=== PATIENT | male | born 1960 | race Caucasian/White ===

== ENCOUNTER 2017-03-11 00:32 | Inpatient (IN) | payer MEDICAID ==
[~2017-03-11] VITALS: Ht 177.8 cm; Wt 71.2 kg
[2017-03-11] VITALS (68 sets, daily range): BP systolic 73–132; BP diastolic 39–61
--- NOTE | 2017-03-11 00:35 | NUR ---
BB RA86 FROM [facility] FOR SpO2 DESATURATION TO 80%, PER TRANSFER RECORD, PT GIVEN LASIX 40mg GT @2300. PT NONVERBAL. RR EVEN AND UNLABORED. NO SOB NOTED. NAD NOTED. NO NVD AT THIS TIME. PT NOT DIAPHORETIC. PT RECTAL TEMP 99.7. PER RA PT PORTEX 8 REPLACED AT [facility] YESTERDAY. RT CALLED.
--- NOTE | 2017-03-11 00:40 | NUR ---
DR. JENSEN AT BEDSIDE. RT AT BEDSIDE
--- NOTE | 2017-03-11 00:45 | NUR ---
IV STARTED ON LEFT HAND 18G, LABS AND BLOOD CX DRAWN
--- NOTE | 2017-03-11 00:47 | NUR ---
XRAY AT BEDSIDE
[2017-03-11] MEDS ORDERED: MAGN400O6 GT (01:11)
[2017-03-11] MEDS ORDERED: IPRA3AMP IH (01:11)
[2017-03-11] MEDS ORDERED: BISA10SU8 RC (01:11)
[2017-03-11] MEDS ORDERED: HYDR-4076 GT (01:11)
[2017-03-11] MEDS ORDERED: TRAM50TA2 GT (01:11)
[2017-03-11] MEDS ORDERED: DOCU-170 GT (01:11)
[2017-03-11] MEDS ORDERED: CHLO473M2 MM (01:11)
[2017-03-11] MEDS ORDERED: DEXT1DRO3 OP (01:11)
[2017-03-11] MEDS ORDERED: LEVE1000 GT (01:11)
[2017-03-11] MEDS ORDERED: NA P133E RC (01:11)
[2017-03-11] MEDS ORDERED: AMAN50SY GT (01:11)
[2017-03-11] MEDS ORDERED: ACET160S GT (01:11)
[2017-03-11] MEDS ORDERED: HEPA500013 SQ (01:11)
[2017-03-11] MEDS ORDERED: AMLO10TA2 GT (01:11)
--- NOTE | 2017-03-11 01:11 | NUR ---
PT'S MOTHER, HORTENCIA MARQUES WHOM LIVES IN [place] CALLED ASKING ABOUT PT'S CONDITION AND REQUESTS THAT STAFF UPDATE HER IF THE PT IS ADMITTED OR DISCHARGED HOME.
[2017-03-11 01:20] LABS: BASOPHILS # (AUTO) 0.1 /CMM (0.0-0.2); BASOPHILS % (AUTO) 0.4 % (0.0-2.0); EOSINOPHILS # (AUTO) 0.1 /CMM (0.0-0.7); EOSINOPHILS % (AUTO) 0.4 % (0.0-6.0); HEMATOCRIT 35 % (39-51); HEMOGLOBIN 11.5 g/dL (13.5-17.5); LYMPHOCYTES # (AUTO) 1.3 /CMM (0.8-4.8); LYMPHOCYTES % (AUTO) 7.7 % (20.0-44.0); MEAN CORPUSCULAR HEMOGLOBIN 32 PG (26.0-33.0); MEAN CORPUSCULAR HGB CONC 33 g/dl (31.0-36.0); MEAN CORPUSCULAR VOLUME 95 fL (80-96); MONOCYTES # (AUTO) 1.3 /CMM (0.1-1.30); MONOCYTES % (AUTO) 7.3 % (2.0-12.0); NEUTROPHILS # (AUTO) 14.7 /CMM (1.8-8.9); NEUTROPHILS % (AUTO) 84.2 % (43.0-81.0); PLATELET COUNT (AUTO) 280 /CMM (150-450); RDW COEFFICIENT OF VARIATION 13.6 (11.5-15.0); RED BLOOD CELL COUNT(AUTO) 3.64 MIL/uL (4.5-6.0); WHITE BLOOD COUNT (AUTO) 17.4 K/uL (4.3-11.0)
[2017-03-11 01:32] LABS: CREATININE 1.9 mg/dL (0.6-1.3); POTASSIUM 4.3 mmol/L (3.5-5.1)
[2017-03-11] MEDS ORDERED: PIPERACILLIN /TAZOBACTAM 3.375 G VIAL IV ONE (01:55)
[2017-03-11] MEDS ORDERED: IV SET PRIMARY PUMP SET 1 EA INFUS.SET MC ONE ×5 (01:55→09:40)
--- NOTE | 2017-03-11 01:55 | NUR ---
RAPID INFLUENZA COLLECTED. CALLED LAB FOR HAND SIZER.
[2017-03-11] MEDS ORDERED: LEVOFLOXACIN 750 MG /D5W 150ML 150 ML IV ONE ×2 (02:00→02:19)
[2017-03-11] MEDS ORDERED: VANCOMYCIN 1 GM in IV D5W 250 ML IV ONE ×2 (02:00→03:00)
[2017-03-11] MEDS ORDERED: PIPERACILLIN /TAZOBACTAM 3.375 G in IV D5W 50 ML IV ONE (02:00)
--- NOTE | 2017-03-11 02:08 | NUR ---
PT ASSIGNED TO [facility] [phone]
--- NOTE | 2017-03-11 02:16 | NUR ---
REPORT GIVEN TO GAETANO WILCOX
--- NOTE | 2017-03-11 02:38 | NUR ---
INFORMED DR. JENSEN D-DIMER 1.74. AWARE. NNO
--- NOTE | 2017-03-11 02:45 | NUR ---
RN NOTES ADMITTED A 56 YEARS OLD MALE PT FROM ER VIA RNEY PER ACLS PROTOCOL WITH PRIMARY DIAGNOSIS OF SOB. PT AWAKE ALERT, NON VERBAL, WITH TRACH AT 6LPM O2 VIA TRACH WITH SATURATION AT 89%. VITAL SIGNS BP 114/61, HR 91, RR18, TEMP 98.3. INITIAL PHYSICAL ASSESSMENT DONE, WITH SKIN CONDITION TAKEN AND FILED IN THE CHART. KEPT PT CLEAN AND DRY. ALL ORDERS NOTED AND CARRIED OUT. WILL CONTINUE TO MONITOR PT.
[2017-03-11] MEDS ORDERED: VANCOMYCIN 1 GM VIAL ONE (02:55)
[2017-03-11] MEDS ORDERED: IV D5W 250 ML IV ONE (02:55)
--- NOTE | 2017-03-11 02:56 | NUR ---
PT TRASNFERED PER ACLS PROTOCOL. LEVAQUN IV RUNNING AT THIS TIME. GAETANO HALL. ENDORSED TO RN TO GIVE VANCOMYCIN 1GM IVPB
[2017-03-11] MEDS ORDERED: ZOLPIDEM TARTRATE 5 MG TABLET PO PRN (03:00)
[2017-03-11] MEDS ORDERED: ACETAMINOPHEN 325 MG TABLET PO PRN (03:00)
[2017-03-11] MEDS ORDERED: BISACODYL SUPP (10 MG) 10 MG/SUPP.RECT SUPP.RECT RC PRN (03:00)
[2017-03-11] MEDS ORDERED: IV NS 0.9% 1,000 ML ONE (03:15)
[2017-03-11] MEDS ORDERED: SECONDARY IV SET 1 EA INFUS.SET MC ONE ×3 (03:16→09:40)
[2017-03-11] MEDS ORDERED: IV NS 0.9% 1,000 ML IV PRN (03:30)
--- NOTE | 2017-03-11 03:50 | NUR ---
RN NOTES RT AT BEDSIDE, COOL AEROSOL VIA TRACH WAS SET UP, PT O2 SAT CONTINOUSLY DROPPING. SECRETIONS WERE SUCTIONED, NOTED WITH THICK, PINK SECRETIONS. O2 WAS INCREASED TO 10%-15% LPM BUT O2SAT CONTIONOUSLY DROPS. VITAL SIGNS WERE CHECKED BP 73/44, HR 74, RR 15, TEMP 98.3, BS 95MG/DL O2SAT WENT DOWN TO 50%. RAPID RESPONSE WAS CALLED. MILO KU GEOTECHNICAL ENGINEERING TECHNICIAN WAS PAGED. AMBU BAGGING WAS DONE TO KEEP O2 SAT ABOVE 93%.
--- NOTE | 2017-03-11 03:55 | NUR ---
RN NOTES RECEIVED ORDER FROM MILO BOURNE TO DO ABG AND PLACE PT ON VENT. CONTINOUS AMBU BAGGING DONE TO KEEP O2 SAT ABOVE 92%.
--- NOTE | 2017-03-11 04:15 | NUR ---
RN NOTES TRANSFERED PT TO ICU PER ACLS PROTOCOL ORDERED, TELEMONITOR READS SINUS RHYTHM WITH HR OF 84. CONTINOUS AMBU BAGGING DONE, WITH O2 SAT AT 98%. REPORT GIVEN TO ED RN IN ICU.
[2017-03-11 04:16] LABS: ABG BASE EXCESS -7.1 mmol/L; ABG OXYGEN SATURATION 97.3 % (92.0-98.5); ABG PCO2 41.7 mmHg (35.0-45.0); ABG PH 7.281 (7.350-7.450); AaDO2 548.3 mmHg; COHb 0.5 % (0.5-1.5); MetHb 0.6 % (0.0-1.5); O2Hb 96.2 % (94.0-97.0); SITE, ABG Left Radial
[2017-03-11] MEDS ORDERED: IPRATROPIUM NEB FS 0.5 MG/2.5 ML AMPUL.NEB NEB PRN (04:30)
[2017-03-11] MEDS ORDERED: ACETYLCYSTEINE IV 6,000 MG/30 ML VIAL IV ONE ×2 (04:30→05:00)
[2017-03-11] MEDS ORDERED: ALBUTEROL FS 2.5 MG/0.5 ML VIAL.NEB NEB PRN (04:30)
[2017-03-11] MEDS ORDERED: IV D5W 500 ML IV ONE (04:54)
[2017-03-11] MEDS ORDERED: NOREPINEPHRINE 4 MG/4 ML AMPUL IV ONE (04:54)
[2017-03-11] MEDS: NOREPINEPHRINE 8 MG in IV D5W 500 ML IV PRN ×2 (05:05→09:45)
[2017-03-11] MEDS ORDERED: ACETYLCYSTEINE 10% SOLN 400 MG/4 ML VIAL ONE (05:10)
[2017-03-11] MEDS ORDERED: ACETYLCYSTEINE 20% SOLN 800 MG/4 ML VIAL ONE (05:13)
[2017-03-11] MEDS ORDERED: CT SWABBABLE VALVE TRANS SET 1 EA INFUS.SET MC ONE (05:20)
[2017-03-11] MEDS ORDERED: IOHEXOL-350 100 ML VIAL IV ONE ×2 (05:20→05:28)
[2017-03-11] MEDS ORDERED: IV NS 0.9% 250 ML IV ONE ×2 (05:20→21:12)
[2017-03-11] MEDS ORDERED: ACETYLCYSTEINE 20% ORAL SOLN 6,000 MG/30 ML VIAL PO SCH (06:00)
[2017-03-11 06:19] LABS: ABG BASE EXCESS -4.5 mmol/L; ABG OXYGEN SATURATION 80.3 % (92.0-98.5); ABG PCO2 51.4 mmHg (35.0-45.0); ABG PH 7.264 (7.350-7.450); ABG PO2 52.3 mmHg (75.0-100.0); AaDO2 609.3 mmHg; COHb 0.8 % (0.5-1.5); MetHb 0.9 % (0.0-1.5); O2Hb 78.9 % (94.0-97.0); SITE, ABG Right Radial
[2017-03-11] MEDS ORDERED: PHENYLEPHRINE 80 MG in IV D5W 250 ML IV PRN (06:30)
[2017-03-11] MEDS ORDERED: AMANTADINE HCL 100 MG CAPSULE GT SCH (07:30)
[2017-03-11] MEDS ORDERED: POLYVINYL ALCOHOL 15 ML BOTTLE EACHEYE PRN (07:30)
[2017-03-11] MEDS ORDERED: HEPARIN INFUSION/D5W 500 ML IV PRN (07:30)
[2017-03-11] MEDS: PANTOPRAZOLE 40 MG TABLET.DR PO SCH (07:30)
--- NOTE | 2017-03-11 07:30 | NUR ---
BREWING DIRECTOR PT WAS TRANSFERRED FROM [facility] AFTER SEED AND FERTILIZER SPECIALIST WITH DIAGNOSIS RESPIRATORY FAILURE. PT IS OBTUNDED, EXTREMITIES ARE CONTRACTED. CHRONIC TRACH. PT WAS PLACED ON VENTILATOR. PT IS HYPOTENSIVE. STARTED LEVOPHED DRIP, TITRATED TO KEEP SBP>90. MUCOMYST VIA PEG WAS GIVEN AND PT WAS TAKEN TO STAT CT-SCAN OF THE CHEST WITH CONTRAST TO R/O PE. WHEN PT WAS PLACED TO THE CT- SCAN TABLE. PT ALMOST CRASHED- SEVERE TACHYPNEA, O2 SAT. DROPPED TO 70'S, SBP DROPPED TO 60'S. SO CT-SCAN WAS NOT DONE AND PT BROUGHT BACK TO ICU. PT HAS ONLY ONE IV ACCESS AND NEED TLC INSERTION. ANOTHER STAT ABG WAS DONE AT 6 A.M.- SEE RESULTS. REPORT GIVEN TO EVER ORDONEZ RN.
[2017-03-11] MEDS ORDERED: FEE PK DOSING 1 MIN EA MC ONE (07:32)
[2017-03-11] MEDS: PROPOFOL 100 ML IV PRN ×3 (08:00→23:32)
--- NOTE | 2017-03-11 08:00 | NUR ---
interior horticulturist received pt in bed not stable, vs not stable pt is on levophed periperal line no central line on pt, called datawarehouse developer to call for emergency picc line incersion, dr. wanda rodríguez at bedside assessing pt, will incert picc line, orders received pt is diaphoretic with respiration rat 40s sat 80s, started pt on propofol as ordered iv fluids dc fall precautions taken call light w/ in reach will continue to monitor.
[2017-03-11] MEDS ORDERED: DOCUSATE SODIUM 100 MG CAPSULE PO SCH (09:00)
[2017-03-11] MEDS ORDERED: HEPARIN SODIUM, PORCINE 1000 UNIT/1 ML VIAL IV ONE (09:00)
[2017-03-11] MEDS ORDERED: HEPARIN SODIUM, PORCINE 5000 UNITS/1 ML VIAL SQ SCH (09:00)
[2017-03-11] MEDS: hydrALAZINE HCL 25 MG TABLET GT SCH ×2 (09:00→21:00)
[2017-03-11] MEDS: TRAMADOL HCL 50 MG TABLET GT SCH ×2 (09:00→21:00)
[2017-03-11] MEDS ORDERED: AMLODIPINE BESYLATE 10 MG TABLET GT SCH (09:00)
--- NOTE | 2017-03-11 09:00 | NUR ---
travel registered nurse icu pt in bed not stable unable to turn the pt as his condition not stable able to off load extremities, once pt is stable will be able to turn and reposition, pt is also contracted difficult to offload lower extremities as properly did the best possible. And
[2017-03-11] MEDS ORDERED: FUROSEMIDE 20 MG/2 ML VIAL IV SCH (09:30)
[2017-03-11] MEDS ORDERED: HEPARIN SODIUM, PORCINE 5000 UNITS/1 ML VIAL IV ONE (09:30)
[2017-03-11] MEDS: VANCOMYCIN 0.75 GM in IV D5W 250 ML IV SCH ×2 (09:31→20:00)
[2017-03-11] MEDS: LEVETIRACETAM SOL (5 ML) 100 MG/ML UDC GT SCH ×2 (09:31→21:17)
[2017-03-11] MEDS: CHLORHEXIDINE GLUCONATE 15 ML UDC MM SCH ×2 (09:31→17:00)
[2017-03-11] MEDS: PIPERACILLIN /TAZOBACTAM 3.375 G in IV D5W 50 ML IV SCH ×3 (09:31→21:17)
[2017-03-11] MEDS: ASPIRIN 81 MG TAB.CHEW PO SCH (09:49)
[2017-03-11] MEDS ORDERED: FUROSEMIDE 40 MG/4 ML VIAL IV ONE (10:00)
[2017-03-11] MEDS ORDERED: FUROSEMIDE 40 MG/4 ML VIAL IV SCH (10:00)
[2017-03-11 10:02] LABS: MAGNESIUM 2.9 mg/dL (1.8-2.4)
[2017-03-11 10:08] LABS: ABG BASE EXCESS -0.1 mmol/L; ABG OXYGEN SATURATION 99.1 % (92.0-98.5); ABG PCO2 33.6 mmHg (35.0-45.0); ABG PH 7.458 (7.350-7.450); ABG PO2 335.1 mmHg (75.0-100.0); COHb 0.4 % (0.5-1.5); MetHb 0.9 % (0.0-1.5); O2Hb 97.8 % (94.0-97.0); SITE, ABG Right Radial; VENT MODE, BG AC 12 550 100%
[2017-03-11] MEDS ORDERED: DIATR MEGLU/DIATRIZOATE SODIUM 120 ML BOTTLE (GASTROGRAPHIN) ONE (12:08)
--- NOTE | 2017-03-11 13:00 | NUR ---
agriculture intern pt in bed able to turn stable applied kci matres noted sacral redness, left lower leg discolorization, left medial side of knee dti blanchable, unable to take photos as pt started to couch turn blue breath against vent, will endorse to pm nurse to take photos once pt is turned and is stable
[2017-03-11 13:23] LABS: INR 0.97 (0.87-1.13); PROTHROMBIN TIME 10.4 SECS (9.5-12.7)
[2017-03-11] MEDS: HEPARIN SODIUM, PORCINE 5000 UNITS/1 ML VIAL SQ SCH (14:22)
--- NOTE | 2017-03-11 19:48 | NUR ---
CIRCULAR SAW FILER. INITIAL ASSESSMENT. RECEIVED THE PT REST ON THE BED TRACH TO VENT CONNECTED. SEDATED WITH DIPRIVAN. SHILEY#8 AC 12 TV [id number] 50%. SAT 98% NO ACUTE DISTRESS NOTED. CREATIVE STRATEGIST SHOWING CREATIVE STRATEGIST SHOWING AFIB. CONTROLLED. IV LT IJ TRIPLE LUMEN DIPRIVAN 35MCG/KG/MIN LEVOPHED 8MCG/MIN. HOB ELEVATED. AFEBRILE. TURN AND REPOSITION Q2H. WILL CONTINUE TO MONITOR VITALS.
[2017-03-11] MEDS: AMANTADINE HCL 100 MG CAPSULE GT SCH (21:17)
[2017-03-11] MEDS: ATORVASTATIN 10 MG TABLET PO SCH (21:17)
--- NOTE | 2017-03-11 21:20 | NUR ---
FLIGHT COMMUNICATIONS OPERATOR. ULTRAM 2100 NOT GIVEN. PT ON DIPRIVAN DRIP
[2017-03-11] MEDS: IV NS 0.9% 250 ML IV PRN (21:25)
[2017-03-12] VITALS (61 sets, daily range): BP systolic 78–123; BP diastolic 40–64
[2017-03-12] MEDS: LEVOFLOXACIN 750 MG /D5W 150ML 750 MG in PREMIX 1 EA IV SCH (01:31)
[2017-03-12] MEDS: NOREPINEPHRINE 8 MG in IV D5W 500 ML IV PRN ×2 (01:32→16:30)
[2017-03-12] MEDS: PIPERACILLIN /TAZOBACTAM 3.375 G in IV D5W 50 ML IV SCH ×4 (02:32→20:53)
[2017-03-12] MEDS ORDERED: LEVOFLOXACIN 750 MG /D5W 150ML 750 MG in PREMIX 1 EA IV SCH (03:00)
--- NOTE | 2017-03-12 03:41 | NUR ---
ELECTRICIAN CONSTRUCTOR SUPERVISOR AM CARE ORAL CARE BED BATH GIVEN. LINEN CHANGED. REMAINING SAME VENT SETTING TOLERATE WELL. SAT 99%. NO ACUTE DISTRESS NOTED. CARDIAC M.ON.ITOR .S.H.O..JEB.Valentin .N.S.R IV LT IJ TRIPLE LUMAN. LEVOPHED 8MCG/MIN DIPRIVAN 30MCG/KG/MIN. GT CLAMPED. NPO. TURN AND REPOSITION Q2H. AFEBRILE. WILL CONTINUE TO MONITOR VITALS.
[2017-03-12 05:05] LABS: APPEARANCE,URINE SL CLOUDY (CLEAR); BILIRUBIN,URINE NEGATIVE (NEGATIVE); BLOOD, URINE 1+ Ery/uL (NEGATIVE); COLOR,URINE YELLOW (YELLOW); KETONES,URINE NEGATIVE (NEGATIVE); LEUKOCYTE ESTERASE ,URINE NEGATIVE (NEGATIVE); NITRITE, URINE POSITIVE (NEGATIVE); PROTEIN,URINE TRACE mg/dl (NEGATIVE); UGLUCOSE NEGATIVE (NEGATIVE); UROBILINOGEN,URINE 0.2 EU/dL (0.2)
[2017-03-12 05:16] LABS: CALCIUM, SERUM 8.8 mg/dL (8.5-10.1); MAGNESIUM 2.9 mg/dL (1.8-2.4); PHOSPHORUS 4.5 mg/dL (2.5-4.9)
[2017-03-12 05:25] LABS: BASOPHILS % (AUTO) 0.1 % (0.0-2.0); EOSINOPHILS # (AUTO) 0.3 /CMM (0.0-0.7); EOSINOPHILS % (AUTO) 1.5 % (0.0-6.0); HEMATOCRIT 29 % (39-51); HEMOGLOBIN 9.6 g/dL (13.5-17.5); LYMPHOCYTES % (AUTO) 11.5 % (20.0-44.0); MEAN CORPUSCULAR HEMOGLOBIN 32 PG (26.0-33.0); MEAN CORPUSCULAR HGB CONC 34 g/dl (31.0-36.0); MEAN CORPUSCULAR VOLUME 95 fL (80-96); MONOCYTES # (AUTO) 1.5 /CMM (0.1-1.30); NEUTROPHILS # (AUTO) 13.2 /CMM (1.8-8.9); NEUTROPHILS % (AUTO) 77.9 % (43.0-81.0); PLATELET COUNT (AUTO) 226 /CMM (150-450); RDW COEFFICIENT OF VARIATION 13.6 (11.5-15.0); RED BLOOD CELL COUNT(AUTO) 2.99 MIL/uL (4.5-6.0)
[2017-03-12 05:27] LABS: BACTERIA,URINE 1+ /HPF (None Seen); RBC,URINE 0-2 /HPF (0-2); SQUAMOUS EPITHELIAL CELL,UR Rare /HPF (None Seen); URINE AMORPHOUS URATE Few /HPF (None Seen); WBC,URINE 0-2 /HPF (0-3)
[2017-03-12] MEDS: PROPOFOL 100 ML IV PRN ×3 (06:46→22:17)
--- NOTE | 2017-03-12 08:14 | NUR ---
TRACHED MALE PT ON [facility] VENT. SETTINGS ORDERED. AC 12 550 40% 0 PEEEP. PT SEDATED JEANINE VENT SETTINGS WELL. TRACH PORTEX MIDLINE. B/S EQUAL. SMALL PALE YELLOW SPUTUM. ALARMS SET AND AUDIBLE. AMBU BAG AT HEAD OF BED. Addendum: 03/12/17 at 0817 by RADHA TOSCANO RT Amended: Links added.
[2017-03-12] MEDS: VANCOMYCIN 0.75 GM in IV D5W 250 ML IV SCH ×2 (08:18→20:00)
[2017-03-12] MEDS: hydrALAZINE HCL 25 MG TABLET GT SCH (08:18)
[2017-03-12] MEDS: PANTOPRAZOLE 40 MG TABLET.DR PO SCH (08:18)
[2017-03-12] MEDS: ASPIRIN 81 MG TAB.CHEW PO SCH (08:18)
[2017-03-12] MEDS: AMANTADINE HCL 100 MG CAPSULE GT SCH ×2 (08:18→20:57)
[2017-03-12] MEDS: LEVETIRACETAM SOL (5 ML) 100 MG/ML UDC GT SCH ×2 (08:18→20:57)
[2017-03-12] MEDS: CHLORHEXIDINE GLUCONATE 15 ML UDC MM SCH ×2 (08:18→16:30)
[2017-03-12] MEDS: TRAMADOL HCL 50 MG TABLET GT SCH ×2 (08:19→20:58)
[2017-03-12] MEDS: HEPARIN SODIUM, PORCINE 5000 UNITS/1 ML VIAL SQ SCH ×2 (08:20→20:59)
--- NOTE | 2017-03-12 09:30 | NUR ---
ICU/RN - Notes Diprivan titrated down to 15 mcg/kg/min to provide pt sedation vacation. Pt noted to be tachypneic and tachycardic with ventilator alarming. RT Vanush at bedside. Diprivan titrated back up as pt presents with distress off sedation.
[2017-03-12] MEDS: DOCUSATE SODIUM LIQ 100 MG/10 ML UDC GT SCH (10:21)
[2017-03-12] MEDS ORDERED: POTASSIUM CL. PREMIX PERIPHER. 50 ML IV SCH (11:00)
[2017-03-12] MEDS ORDERED: SECONDARY IV SET 1 EA INFUS.SET MC ONE (11:02)
[2017-03-12] MEDS ORDERED: IV SET PRIMARY PUMP SET 1 EA INFUS.SET MC ONE ×2 (14:55→20:44)
[2017-03-12] MEDS: LACTOBACILLUS RHAMNOSUS GG 1 EACH CAP.SPRINK GT SCH (16:30)
--- NOTE | 2017-03-12 19:45 | NUR ---
ICU/PNEUMATIC TOOL REPAIRER PT'S VANCO LEVEL WAS 30, UNABLE TO 2000 VANCO. CHARGE NURSE AWARE OF LEVEL AND REASON WHY NO ADMINISTRATION.
--- NOTE | 2017-03-12 20:17 | NUR ---
ICU/QUALITY ASSURANCE ADVISOR PT IS MRSA NARES POSITIVE, JULIO C MCCLOUD CALLED . ORDERS WERE RECEIVED AND CARRIED OUT. CHARGE NURSE IS AWARE.
[2017-03-12] MEDS: ATORVASTATIN 10 MG TABLET PO SCH (20:58)
--- NOTE | 2017-03-12 21:30 | NUR ---
ICU/MAILROOM ASSISTANT WHEN TURNING PT, THAT HIS RICO HAD SOME PINK TING TO THE DIAPER. WHILE SUCTIONING PT THERE WAS A MUCUS PLUS THAT COME UP, WHICH WAS COVED IN BRIGHT RED BLOOD. WILL CONTINUE TO MONITOR THIS. PT WAS TURNED AND REPOSITIONED FOR COMFORT AND CARE.
[2017-03-12] MEDS ORDERED: MUPIROCIN OINT 2% 22 GM TUBE ONE (22:35)
[2017-03-12] MEDS: MUPIROCIN OINT 2% 22 GM TUBE SCH (22:56)
[2017-03-13] VITALS (74 sets, daily range): BP systolic 80–120; BP diastolic 38–58
--- NOTE | 2017-03-13 02:00 | NUR ---
ICU/SPRAY APPLICATOR WHILE CHANGING THE PT AND GIVEN AM CARE, THERE WAS A LARGE BLOOD CLOT ON THE RICO AND PENIS OF PT. MADE CHARGE NURSE OF AWARE OF THIS. ADDED PT, PTT, INR, AND DIC PANEL. ALSO NOTICED MORE BLOOD IN THE SUCTION CANISTER WHILE SUCTIONING THE PT.PT WAS CLEANED AND REPOSITIONED FOR COMFORT AND CARE.
--- NOTE | 2017-03-13 03:10 | NUR ---
ICU/TITLE ABSTRACTOR WHILE GIVING PT BATH PT'S BLOOD PRESSURE DROPPED. CHARGE NURSE AWARE OF THIS. INCREASE LEVO FROM 4 MCG TO 6MCG. WILL CONTINUE TO MONITOR PT'S BLOOD PRESSURE.
[2017-03-13] MEDS: PIPERACILLIN /TAZOBACTAM 3.375 G in IV D5W 50 ML IV SCH ×4 (03:17→20:55)
--- NOTE | 2017-03-13 04:20 | NUR ---
ICU/PAPER DELIVERER PT REQUIRED FREQUENT SUCTIONING BY NURSE, WAS BUCKING THE VENT. WHEN PT WAS SUCTIONED FOUND THAT PT HAD MANY MUCUS PLUGS WITH BLOOD, HHM FILTER WAS CHANGED OUT , WELL THE TUBING BECAUSE WHEN I SUCTIONED PT, THERE WAS MUCH MUCUS AND BLOOD IN TUBING, NURSE CHANGED THIS TOO. WILL CONTINUE TO MONITOR THIS PT.
[2017-03-13] MEDS: PROPOFOL 100 ML IV PRN (04:51)
[2017-03-13 05:21] LABS: BASOPHILS % (AUTO) 0.3 % (0.0-2.0); EOSINOPHILS # (AUTO) 0.4 /CMM (0.0-0.7); EOSINOPHILS % (AUTO) 2.9 % (0.0-6.0); HEMATOCRIT 26 % (39-51); HEMOGLOBIN 8.9 g/dL (13.5-17.5); LYMPHOCYTES # (AUTO) 2.1 /CMM (0.8-4.8); LYMPHOCYTES % (AUTO) 14.9 % (20.0-44.0); MEAN CORPUSCULAR HEMOGLOBIN 32 PG (26.0-33.0); MEAN CORPUSCULAR HGB CONC 34 g/dl (31.0-36.0); MEAN CORPUSCULAR VOLUME 94 fL (80-96); MONOCYTES # (AUTO) 1.1 /CMM (0.1-1.30); MONOCYTES % (AUTO) 8.2 % (2.0-12.0); NEUTROPHILS # (AUTO) 10.2 /CMM (1.8-8.9); NEUTROPHILS % (AUTO) 73.7 % (43.0-81.0); PLATELET COUNT (AUTO) 223 /CMM (150-450); RDW COEFFICIENT OF VARIATION 13.6 (11.5-15.0); WHITE BLOOD COUNT (AUTO) 13.8 K/uL (4.3-11.0)
[2017-03-13 05:40] LABS: ALBUMIN 1.9 g/dL (3.4-5.0); BILIRUBIN,TOTAL 0.6 mg/dL (0.2-1.0); CALCIUM, SERUM 8.8 mg/dL (8.5-10.1); CREATININE 1.7 mg/dL (0.6-1.3); MAGNESIUM 2.6 mg/dL (1.8-2.4); PHOSPHORUS 3.9 mg/dL (2.5-4.9); TOTAL PROTEIN, SERUM 6.5 g/dL (6.4-8.2); TROPONIN I 0.308 ng/mL (0.00-0.056)
--- NOTE | 2017-03-13 05:50 | NUR ---
ICU/CORPORATE REAL ESTATE SPECIALIST PT'S POTASSIUM IS 2.8, CHARGE AWARE. CALLED ROBOTIC MAINTENANCE TECHNICIAN FOR ORDERS.
[2017-03-13 05:56] LABS: POTASSIUM 2.8 mmol/L (3.5-5.1)
[2017-03-13] MEDS ORDERED: POTASSIUM CHLORIDE 20 MEQ POWDER PACKET ONE (06:11)
--- NOTE | 2017-03-13 06:29 | NUR ---
ICU/BENCH PATTERNMAKER METAL POTASSIUM IS 2.8, ORDERS RECEIVED TO GIVEN 80MEQ VIA G/TUBE. CHARGE NURSE AWARE OF ORDERS.
[2017-03-13] MEDS ORDERED: POTASSIUM CHLORIDE 20 MEQ POWDER PACKET GT ONE (06:30)
[2017-03-13 06:34] LABS: D-DIMER 1.28 mg/L(FEU (0.17-0.50); INR 1.09 (0.87-1.13); PROTHROMBIN TIME 11.7 SECS (9.5-12.7)
--- NOTE | 2017-03-13 06:50 | NUR ---
ICU/MAINFRAME CONSULTANT DR KHAN HERE TO SEE THE PT, TOLD HIN ABOUT THE ACTIVE BLEEDING FROM PENIS. PT HAD BEEN ON HEPARIN DRIP THEN WAS ON HEPARIN BID. DR. KHAN GAVE ORDER TO HOLD HEPARIN SQ. THEN TOLD MD KHAN THAT DIC PANEL WAS ORDERED, PT, PTT WITH INR, SAID OK JUST FOLLOW UP WITH THIS. IN ROOM TO SEE PT. WILL HAVE DAY NURSE FOLLOW UP WITH LABS.
[2017-03-13] MEDS: TRAMADOL HCL 50 MG TABLET GT SCH ×2 (08:06→20:53)
[2017-03-13] MEDS: DOCUSATE SODIUM LIQ 100 MG/10 ML UDC GT SCH (08:06)
[2017-03-13] MEDS: LACTOBACILLUS RHAMNOSUS GG 1 EACH CAP.SPRINK GT SCH ×2 (08:06→16:12)
[2017-03-13] MEDS: ASPIRIN 81 MG TAB.CHEW PO SCH (08:06)
[2017-03-13] MEDS: CHLORHEXIDINE GLUCONATE 15 ML UDC MM SCH ×2 (08:06→16:12)
[2017-03-13] MEDS: LEVETIRACETAM SOL (5 ML) 100 MG/ML UDC GT SCH ×2 (08:06→20:51)
[2017-03-13] MEDS: AMANTADINE HCL 100 MG CAPSULE GT SCH ×2 (08:06→20:51)
[2017-03-13] MEDS: MUPIROCIN OINT 2% 22 GM TUBE SCH ×2 (08:07→20:54)
[2017-03-13] MEDS: PANTOPRAZOLE 40 MG TABLET.DR PO SCH (08:07)
[2017-03-13 08:41] LABS: ABG BASE EXCESS 0.1 mmol/L; ABG OXYGEN SATURATION 97.6 % (92.0-98.5); ABG PCO2 30.4 mmHg (35.0-45.0); ABG PH 7.494 (7.350-7.450); ABG PO2 114.1 mmHg (75.0-100.0); AaDO2 136.1 mmHg; COHb 0.5 % (0.5-1.5); MetHb 0.6 % (0.0-1.5); O2Hb 96.5 % (94.0-97.0); SITE, ABG Right Radial; VENT MODE, BG A/C; VT, ABG 550 mL
--- NOTE | 2017-03-13 09:30 | NUR ---
ICU/RN - Notes Diprivan titrated down to provide pt with sedation vacation. Pt opens eyes spontaneously, with rigid extremities, obtunded. Pt appears in no distress at this time. Will continue to monitor.
[2017-03-13] MEDS: POTASSIUM CL. PREMIX PERIPHER. 50 ML IV SCH ×4 (11:11→15:46)
[2017-03-13] MEDS: NUTREN PULMONARY 1,000 ML BAG GT PRN (13:14)
[2017-03-13] MEDS ORDERED: ALBUTEROL FS 2.5 MG/3 ML VIAL.NEB NEB PRN (13:30)
--- NOTE | 2017-03-13 14:20 | NUR ---
ICU/RN - Notes New hematuria and blood clots noted around penis opening. Dr Beth made aware, with urine collected and sent to lab for urinalysis and culture.
[2017-03-13] MEDS: NOREPINEPHRINE 8 MG in IV D5W 500 ML IV PRN (14:23)
[2017-03-13] MEDS: IV NS 0.9% 250 ML IV PRN (14:23)
[2017-03-13] MEDS: VANCOMYCIN 1 GM in IV D5W 250 ML IV SCH (16:12)
[2017-03-13 19:24] LABS: APPEARANCE,URINE TURBID (CLEAR); BILIRUBIN,URINE NEGATIVE (NEGATIVE); BLOOD, URINE 3+ Ery/uL (NEGATIVE); COLOR,URINE RED (YELLOW); KETONES,URINE NEGATIVE (NEGATIVE); LEUKOCYTE ESTERASE ,URINE TRACE (NEGATIVE); NITRITE, URINE NEGATIVE (NEGATIVE); PH,URINE 5.5 (5.0-8.0); PROTEIN,URINE 2+ mg/dl (NEGATIVE); UGLUCOSE NEGATIVE (NEGATIVE); UROBILINOGEN,URINE 0.2 EU/dL (0.2)
[2017-03-13 19:26] LABS: BACTERIA,URINE None seen /HPF (None Seen); RBC,URINE TOO NUMEROUS TO COUN /HPF (0-2); SQUAMOUS EPITHELIAL CELL,UR None Seen /HPF (None Seen); WBC,URINE 0-2 /HPF (0-3)
--- NOTE | 2017-03-13 20:30 | NUR ---
CONSULTING SOFTWARE ENGINEER: PT RECEIVED IN BED . PT OBTUNDED WITH EYES OPEN AND RESPONDS TO PAIN . ALL FOUR EXTREMITIES CONTRACTED. PT IS NON VERBAL. SR-SB ON MONITOR. BP WNL, ON PRESSOR. WILL TITRATE OFF TOLERATED. TRACH IN PLACE AND CONNECTED TO VENT ON AC SETTINGS PER MD. SUCTIONED PT NEEDED. ORAL AND TRACH SECRETIONS NOTED TO BE THICK AND MODERATE. HOB ELEVATED AT 30 DEGREES AT ALL TIMES. GT INTACT AND PATENT . TOLERATING FEEDINGS. WILL CONT TO INCREASE RATE OF FEEDING TOLERATED. FC INTACT AND PATENT WITH HEMATURIA NOTED. PER AM NURSE THE MD IS AWARE. NO OTHER ACTIVE SIGNS BLEEDING NOTED. UPON ASSESSMENT OF SKIN, PATIENT HAS SACRAL REDNESS AND EXCORIATION . PICTURE WAS TAKEN WITHIN THE LAST 24 HOURS . CONSULTED WITH CHARGE NURSE AND NO NEED FOR PICTURE TO BE TAKEN THIS TUESDAY NIGHT FOR WEEKLY WOUND DOCUMENTATION , SKIN IS INTACT. WILL TURN AND REPOSITION PT EVERY TWO HOURS AND KEEP CLEAN AND DRY AT ALL TIMES. PILLOWS PLACED BETWEEN CONTRACTED LEGS AND TO OFFLOAD HEELS AND ARMS. SIDE RAILS UP X2 AND BED ALARM ON. WILL CONT TO MONITOR PT FOR ANY CHANGES IN CONDITION THROUGHOUT THE NIGHT .
[2017-03-13] MEDS: ATORVASTATIN 10 MG TABLET PO SCH (21:00)
[2017-03-14] VITALS (62 sets, daily range): BP systolic 11–119; BP diastolic 43–62
[2017-03-14] MEDS: LEVOFLOXACIN 750 MG /D5W 150ML 750 MG in PREMIX 1 EA IV SCH (02:43)
[2017-03-14] MEDS: PIPERACILLIN /TAZOBACTAM 3.375 G in IV D5W 50 ML IV SCH ×4 (03:41→21:14)
[2017-03-14 05:10] LABS: BASOPHILS % (AUTO) 0.3 % (0.0-2.0); EOSINOPHILS # (AUTO) 0.6 /CMM (0.0-0.7); EOSINOPHILS % (AUTO) 6.1 % (0.0-6.0); HEMATOCRIT 26 % (39-51); HEMOGLOBIN 8.9 g/dL (13.5-17.5); LYMPHOCYTES # (AUTO) 1.6 /CMM (0.8-4.8); LYMPHOCYTES % (AUTO) 16.3 % (20.0-44.0); MEAN CORPUSCULAR HEMOGLOBIN 32 PG (26.0-33.0); MEAN CORPUSCULAR HGB CONC 34 g/dl (31.0-36.0); MEAN CORPUSCULAR VOLUME 95 fL (80-96); MONOCYTES # (AUTO) 0.9 /CMM (0.1-1.30); MONOCYTES % (AUTO) 9.3 % (2.0-12.0); NEUTROPHILS # (AUTO) 6.7 /CMM (1.8-8.9); PLATELET COUNT (AUTO) 224 /CMM (150-450); RDW COEFFICIENT OF VARIATION 13.5 (11.5-15.0); RED BLOOD CELL COUNT(AUTO) 2.78 MIL/uL (4.5-6.0); WHITE BLOOD COUNT (AUTO) 9.8 K/uL (4.3-11.0)
[2017-03-14 05:21] LABS: CALCIUM, SERUM 9.1 mg/dL (8.5-10.1); CREATININE 1.3 mg/dL (0.6-1.3); POTASSIUM 3.7 mmol/L (3.5-5.1)
[2017-03-14 05:27] LABS: TROPONIN I 0.206 ng/mL (0.00-0.056)
--- NOTE | 2017-03-14 06:00 | NUR ---
PRIMER POWDER BLENDER WET : NO CHANGES NOTED THROUGHOUT THE NIGHT. ACTIVITY TOLERATED WELL AND NO SIGNS OF RESPIRATORY DISTRESS NOTED THROUGHOUT THE NIGHT. PT HAS BEEN OFF LEVOPHED SINCE 2 AM AND TOLERATING WELL.
--- NOTE | 2017-03-14 07:42 | NUR ---
ICU/RN: INITIAL NOTES,AM RECEIVED REPORT FROM NIGHT NURSE. RECEIVED PT EYES OPEN, DOES NOT FOLLOW COMMANDS. REACTS TO PAINFUL STIMULI. PT CHRONIC VENT TRACH, AARTI 8, WITH VENT SETTINGS ORDERED BY MD, NO ACUTE DISTRESS NOTED. PT SINUS SANDI ON TELE. PT OFF VASOPRESSORS, MAINTAINING SBP >90. LEFT IG TLC NOTED, CLEAN DRY AND INTACT. GTUBE FEEDING INFUSING, TOLERATING WELL, 0 RESIDUAL NOTED. INCREASED TO 40ML HR PER ORDERS, GOAL 55. RICO IN PLACE, MINIMAL HEMATURIA NOTED, PENDING CULTURES. PT ON LOW AIR LOSS MATTRESS, TURNED AND REPOSITIONED. ALL NEEDS WILL BE MET, SAFETY MEASURES TAKEN, BED IN LOW POSITION, SIDE RAILS UP, CALL LIGHT WITHIN REACH. WILL CONTINUE TO MONITOR AND CARE.
[2017-03-14] MEDS: PANTOPRAZOLE 40 MG TABLET.DR PO SCH (08:11)
[2017-03-14] MEDS: TRAMADOL HCL 50 MG TABLET GT SCH ×2 (08:11→21:12)
[2017-03-14] MEDS: ASPIRIN 81 MG TAB.CHEW PO SCH (08:11)
[2017-03-14] MEDS: LEVETIRACETAM SOL (5 ML) 100 MG/ML UDC GT SCH ×2 (08:11→21:11)
[2017-03-14] MEDS: DOCUSATE SODIUM LIQ 100 MG/10 ML UDC GT SCH (08:11)
[2017-03-14] MEDS: CHLORHEXIDINE GLUCONATE 15 ML UDC MM SCH ×2 (08:11→16:54)
[2017-03-14] MEDS: LACTOBACILLUS RHAMNOSUS GG 1 EACH CAP.SPRINK GT SCH ×2 (08:11→16:54)
[2017-03-14] MEDS: AMANTADINE HCL 100 MG CAPSULE GT SCH ×2 (08:12→21:12)
[2017-03-14] MEDS: MUPIROCIN OINT 2% 22 GM TUBE SCH ×2 (08:12→21:13)
--- NOTE | 2017-03-14 08:20 | NUR ---
ICU/RN: UPON 0800 HEAD TO TOE ASSESSMENT, DISCOVERED WORSENING AREAS AND NEW AREAS OF DTI IN SACRUM. WOUND CONSULT ORDERED. PT ALREADY ON LOW AIR LOSS MATTRESS AND TURNED AND REPOSITIONED Q 2 HOURS AND NEEDED. NEW PHOTO TAKEN AND PLACED IN CHART.
[2017-03-14] MEDS: NUTREN PULMONARY 1,000 ML BAG GT PRN (16:52)
[2017-03-14] MEDS: VANCOMYCIN 1 GM in IV D5W 250 ML IV SCH (16:53)
[2017-03-14] MEDS: IV NS 0.9% 250 ML IV PRN (16:54)
--- NOTE | 2017-03-14 18:50 | NUR ---
ICU/RN ENDING NOTES,AM REPORT WILL BE ENDORSED TO NIGHT NURSE FOR CONTINUATION OF CARE. ALL NEEDS MET. PT ON VENT SETTINGS ORDERED. NO ACUTE DISTRESS NOTED. PT ON GTUBE FEEDING, INCREASED TO 50ML PER HR, PER MD ORDERS. TOLERATING WELL. TLC PATENT AND INTACT, NO S/S OF INFECTION NOTED. PT BATHED, TUNED AND REPOSITIONED. ALL NEEDS MET. WILL ENDORSE TO CONTINUE CARE
--- NOTE | 2017-03-14 20:00 | NUR ---
RESTAURANT SHIFT SUPERVISOR: PT OBTUNDED WITH EYES OPEN AND RESPONDS TO PAIN .NON VERBAL AND DOESNT FOLLOW COMMANDS. ALL FOUR EXTREMITIES CONTRACTED. SB ON MONITOR. BP WNL. PT IS HEMODYNAMICALLY STABLE. TRACH IN PLACE AND CONNECTED TO VENT ON AC SETTINGS PER MD. SUCTIONED PT NEEDED. ORAL AND TRACH SECRETIONS NOTED TO BE THICK AND MODERATE. HOB ELEVATED AT 30 DEGREES AT ALL TIMES. GT INTACT AND PATENT . PT IS TOLERATING FEEDINGS. WILL CONT TO INCREASE RATE OF FEEDING TOLERATED. FREE WATER FLUSHED WILL BE GIVEN WELL. FC INTACT AND PATENT . PTS MOUTH NOTED TO HAVE DRY BLOOD . UPON ASSESSMENT OF MOUTH , ROOT OF TOOTH NOTED TO BE SLIGHTLY BLEEDING .ORAL CARE DONE VERY CAREFULLY AND PRESSURE APPLIED TO STOP BLEEDING. BLEEDING STOPPED. WILL MONITOR AND ADDRESS ISSUE WITH DOCTOR. WILL TURN AND REPOSITION PT EVERY TWO HOURS AND KEEP CLEAN AND DRY AT ALL TIMES. PILLOWS PLACED BETWEEN CONTRACTED LEGS AND TO OFFLOAD HEELS AND ARMS. SIDE RAILS UP X2 AND BED ALARM ON. WILL CONT TO MONITOR PT FOR ANY CHANGES IN CONDITION THROUGHOUT THE NIGHT . Addendum: 03/15/17 at 0646 by SHIRA ORDAZ RN LEFT EYE NOTED TO HAVE A NEW BRUISE . PICTURE TAKEN AND PLACED IN CHART. WILL MONITOR FOR CHANGES.
[2017-03-14] MEDS: ATORVASTATIN 10 MG TABLET PO SCH (21:15)
--- NOTE | 2017-03-14 22:30 | NUR ---
DIRECTOR OF PARKS AND RECREATION: FREQUENT, THICK , YELLOW AND PINK TINGED ORAL SECRETIONS SUCTIONED AND TRACH SECRETIONS SUCTIONED WELL . REQUESTED RT TO CHANGE HME FILTER .
[2017-03-15] VITALS (35 sets, daily range): BP systolic 11–120; BP diastolic 40–64
[2017-03-15] MEDS ORDERED: SECONDARY IV SET 1 EA INFUS.SET MC ONE (03:58)
[2017-03-15] MEDS: PIPERACILLIN /TAZOBACTAM 3.375 G in IV D5W 50 ML IV SCH ×4 (03:59→20:44)
[2017-03-15 04:53] LABS: BASOPHILS % (AUTO) 0.2 % (0.0-2.0); EOSINOPHILS # (AUTO) 0.8 /CMM (0.0-0.7); EOSINOPHILS % (AUTO) 7.7 % (0.0-6.0); HEMATOCRIT 26 % (39-51); HEMOGLOBIN 8.9 g/dL (13.5-17.5); LYMPHOCYTES # (AUTO) 1.8 /CMM (0.8-4.8); LYMPHOCYTES % (AUTO) 17.8 % (20.0-44.0); MEAN CORPUSCULAR HEMOGLOBIN 32 PG (26.0-33.0); MEAN CORPUSCULAR HGB CONC 34 g/dl (31.0-36.0); MEAN CORPUSCULAR VOLUME 95 fL (80-96); MONOCYTES % (AUTO) 10.1 % (2.0-12.0); NEUTROPHILS # (AUTO) 6.4 /CMM (1.8-8.9); NEUTROPHILS % (AUTO) 64.2 % (43.0-81.0); PLATELET COUNT (AUTO) 228 /CMM (150-450); RDW COEFFICIENT OF VARIATION 13.9 (11.5-15.0); RED BLOOD CELL COUNT(AUTO) 2.77 MIL/uL (4.5-6.0)
[2017-03-15 04:57] LABS: CALCIUM, SERUM 8.7 mg/dL (8.5-10.1); CREATININE 1.1 mg/dL (0.6-1.3); POTASSIUM 3.8 mmol/L (3.5-5.1)
[2017-03-15 05:06] LABS: TROPONIN I 0.154 ng/mL (0.00-0.056)
--- NOTE | 2017-03-15 06:44 | NUR ---
SUMMER COUNSELOR :PT STABLE THROUGHOUT THE NIGHT. TOLERATED ACTIVITY WELL THROUGHOUT THE NIGHT. NO CHANGES NOTED.
--- NOTE | 2017-03-15 07:16 | NUR ---
INDUSTRIAL ELECTRICAL TECHNICIAN RECEIVED PATIENT FROM THE PREVIOUS SHIFT. PATIENT IS IN BED. RESTING COMFORTABLY. OBTUNDED NEURO STATUS. AFEBRILE. SINUS SANDI ON MONITOR. TURNED AND REPOSITIONED FOR COMFORT AND WOUND PREVENTION. WILL CONTINUE TO MONITOR AND PROVIDE CARE.
[2017-03-15] MEDS ORDERED: IV NS 0.9% 250 ML IV ONE (07:45)
[2017-03-15] MEDS: DOCUSATE SODIUM LIQ 100 MG/10 ML UDC GT SCH (07:59)
[2017-03-15] MEDS: LACTOBACILLUS RHAMNOSUS GG 1 EACH CAP.SPRINK GT SCH ×2 (08:00→16:17)
[2017-03-15] MEDS: AMANTADINE HCL 100 MG CAPSULE GT SCH ×2 (08:00→20:44)
[2017-03-15] MEDS: TRAMADOL HCL 50 MG TABLET GT SCH ×2 (08:00→20:44)
[2017-03-15] MEDS: CHLORHEXIDINE GLUCONATE 15 ML UDC MM SCH ×2 (08:00→16:17)
[2017-03-15] MEDS: ASPIRIN 81 MG TAB.CHEW PO SCH (08:00)
[2017-03-15] MEDS: LEVETIRACETAM SOL (5 ML) 100 MG/ML UDC GT SCH ×2 (08:00→20:44)
[2017-03-15] MEDS: MUPIROCIN OINT 2% 22 GM TUBE SCH ×2 (08:01→20:45)
[2017-03-15] MEDS: PANTOPRAZOLE 40 MG TABLET.DR PO SCH (08:02)
--- NOTE | 2017-03-15 08:16 | NUR ---
WOUND CARE CONSULT PATIENT SEEN AND SKIN INTEGRITY ASSESSMENT DONE. PLEASE SEEN APPLIER ASSESSMENT IN PCS FOR TODAY ALONG WITH ALL RECOMMENDATIONS. PATIENT WITH CURRENT ANDREI AT 10. 1ST STEP LOW AIRLOSS MATTRESS IN PLACE, TURNING Q 2 HOURS PATIENT CONDITION PERMITS, BILATERAL HEEL FLOATING. PATIENT NOTED TO HAVE SEVERE UPPER AND LOWER EXTREMITY CONTRACTURES MAKING OFF LOADING DIFFICULT. CONTINUE ALL SKIN MANAGEMENT AND PREVENTION MEASURES PER CURRENT PLAN OF CARE. MD IN AGREEMENT WITH TREATMENT PLANS. ALL DISCUSSED WITH NURSING AT THE BEDSIDE. Addendum: 03/15/17 at 0818 by TAMMIE AVILA WNDNU Amended: Links added.
--- NOTE | 2017-03-15 13:03 | NUR ---
HOME HEALTH TRAVEL PT PATIENT NOTED TO HAVE A LOOSE BM. DURING CLEANING, RN NOTED THAT PATIENT'S DTI IN EVOLUTION OPENED TO AND HAVE A STAGE 2 TO THE RIGHT BUTTOCK MEASURING 2X2.5 CM. WOUND PICTURE DONE. ATTENDING MD NOTIFIED. WOUND CARE NOTIFIED. NEW WOUND CARE ORDERS PLACED. TURNED AND REPOSITIONED FOR COMFORT AND WOUND PREVENTION.
[2017-03-15] MEDS: HYDROGEL DRESSING 90 GM TUBE TP SCH (14:17)
[2017-03-15] MEDS: NUTREN PULMONARY 1,000 ML BAG GT PRN (14:17)
[2017-03-15] MEDS: LEVOFLOXACIN 750 MG /D5W 150ML 750 MG in PREMIX 1 EA IV SCH (14:17)
[2017-03-15] MEDS: VANCOMYCIN 1 GM in IV D5W 250 ML IV SCH (16:17)
--- NOTE | 2017-03-15 16:54 | NUR ---
SALES CENTER MANAGER TRANSFERRED THE PATIENT TO BREANNA LEVEL OF CARE ON STABLE CONDITIONS. ACLS PROTOCOL. REPORT GIVEN TO RECEIVING RN.
--- NOTE | 2017-03-15 16:58 | NUR ---
BREANNA RN NOTE RECEIVED PATENT ROM ICU , WITH TEACH TO VENT SETTING ORDERED , WITH GTUBE FEEDING ORDERED, BED IN LOWEST AND LOCKED POSITION , CALL LIGHT WITHIN REACH , ON KCI MATRES , WILL CONT TO MONITOR CLOSELY , NO SOB NOTED NOT IN ACUTE DISTRESS
--- NOTE | 2017-03-15 17:50 | NUR ---
MICROBIOLOGY LAB MANAGER NOTE ASSISTED TO BR ,ABLE TO MAKE BM ,KEEP CLEAN DRY , ALL NEEDS ATTENDED ,WILL CONT TO MONITOR CLOSELY Addendum: 03/15/17 at 1753 by PANDA BALDWIN RN WRONG CHART ,WRONG PATIENT
--- NOTE | 2017-03-15 17:53 | NUR ---
BREANNA RN NOTE CONT ON GTUBE FEEDING ORDERED ,FREE WATER 150 ML GIVEN CONT ON VENT SETTING ORDERED , WILL CONT TO MONITOR CLOSELY
[2017-03-15] MEDS: ATORVASTATIN 10 MG TABLET PO SCH (21:05)
[2017-03-16] VITALS: BP 92/50
[2017-03-16] MEDS: PIPERACILLIN /TAZOBACTAM 3.375 G in IV D5W 50 ML IV SCH ×4 (02:01→20:32)
[2017-03-16 04:00] VITALS: BP 93/44
[2017-03-16 07:15] LABS: BASOPHILS % (AUTO) 0.2 % (0.0-2.0); EOSINOPHILS # (AUTO) 0.7 /CMM (0.0-0.7); EOSINOPHILS % (AUTO) 6.5 % (0.0-6.0); HEMATOCRIT 26 % (39-51); HEMOGLOBIN 8.7 g/dL (13.5-17.5); LYMPHOCYTES % (AUTO) 18.3 % (20.0-44.0); MEAN CORPUSCULAR HEMOGLOBIN 32 PG (26.0-33.0); MEAN CORPUSCULAR HGB CONC 34 g/dl (31.0-36.0); MEAN CORPUSCULAR VOLUME 96 fL (80-96); MONOCYTES # (AUTO) 1.1 /CMM (0.1-1.30); MONOCYTES % (AUTO) 10.6 % (2.0-12.0); NEUTROPHILS # (AUTO) 6.9 /CMM (1.8-8.9); NEUTROPHILS % (AUTO) 64.4 % (43.0-81.0); PLATELET COUNT (AUTO) 234 /CMM (150-450); WHITE BLOOD COUNT (AUTO) 10.7 K/uL (4.3-11.0)
--- NOTE | 2017-03-16 07:25 | NUR ---
RN INITIAL NOTES PT IN BED, OBTUNDED, VERY CONTRACTED, ON [facility] VENT PORTEX #8, AC 12, TV 500, FIO2 35%, PEEP 0, TOLERATING WELL, NO SIGNS OF DISTRESS NOTED. ON TELE MONITOR WITH SB 55. PT HAS F/C DRAINING WELL, CLEAR YELLOW URINE. PT HAS A SACRUM DTI, ALL WOUND ORDERS CARRIED OUT. PT HAS GT RUNNING NUTREN PULMPACK @ 55 CC/HR, TOLERATING WELL, NO RESIDUAL. IV ON LEJ RUNNING TKO, SALINE FLUSHED, CDI, NO SIGNS OF INFECTION/INFILTRATION. CALL LIGHT WITHIN EASY REACH, SAFETY MEASURES MAINTAINED, WILL CONTINUE TO MONITOR AND FOLLOW MD ORDERS. PT IN OVERALL STABLE CONDITION.
[2017-03-16 07:29] LABS: CALCIUM, SERUM 8.5 mg/dL (8.5-10.1); MAGNESIUM 2.2 mg/dL (1.8-2.4); PHOSPHORUS 2.9 mg/dL (2.5-4.9); POTASSIUM 3.7 mmol/L (3.5-5.1)
[2017-03-16 08:00] VITALS: BP 89/46
[2017-03-16] MEDS: AMANTADINE HCL 100 MG CAPSULE GT SCH ×2 (08:07→20:32)
[2017-03-16] MEDS: ASPIRIN 81 MG TAB.CHEW PO SCH (08:07)
[2017-03-16] MEDS: DOCUSATE SODIUM LIQ 100 MG/10 ML UDC GT SCH (08:07)
[2017-03-16] MEDS: LACTOBACILLUS RHAMNOSUS GG 1 EACH CAP.SPRINK GT SCH ×2 (08:07→16:24)
[2017-03-16] MEDS: TRAMADOL HCL 50 MG TABLET GT SCH ×2 (08:07→20:32)
[2017-03-16] MEDS: LEVETIRACETAM SOL (5 ML) 100 MG/ML UDC GT SCH ×2 (08:07→20:32)
[2017-03-16] MEDS: CHLORHEXIDINE GLUCONATE 15 ML UDC MM SCH ×2 (08:07→16:24)
[2017-03-16] MEDS: PANTOPRAZOLE 40 MG TABLET.DR PO SCH (08:07)
[2017-03-16] MEDS: HYDROGEL DRESSING 90 GM TUBE TP SCH (08:14)
[2017-03-16] MEDS: MUPIROCIN OINT 2% 22 GM TUBE SCH ×2 (08:14→21:42)
[2017-03-16] MEDS ORDERED: IV D5W 1,000 ML IV PRN (10:16)
[2017-03-16] MEDS ORDERED: IV SET PRIMARY PUMP SET 1 EA INFUS.SET MC ONE (10:22)
[2017-03-16] MEDS: NUTREN PULMONARY 1,000 ML BAG GT PRN (10:36)
[2017-03-16 12:00] VITALS: BP 86/49
[2017-03-16] MEDS ORDERED: SECONDARY IV SET 1 EA INFUS.SET MC ONE ×2 (12:48→17:40)
[2017-03-16] MEDS: LEVOFLOXACIN 750 MG /D5W 150ML 750 MG in PREMIX 1 EA IV SCH (13:02)
[2017-03-16 16:00] VITALS: BP 89/50
[2017-03-16] MEDS: VANCOMYCIN 1 GM in IV D5W 250 ML IV SCH (17:48)
--- NOTE | 2017-03-16 19:08 | NUR ---
RN CLOSING NOTES PT IN STABLE CONDITION, ALL MD ORDERS CARRIED OUT, TOLERATING MECH VENT WELL, IV CDI, NO SIGNS OF INFECTION/INFECTION, F/C DRAINING WELL, GT INTACT, TOLERATING FEEDING WELL. CALL LIGHT WITHIN EASY REACH, SAFETY MEASURES MAINTAINED, REPORT GIVEN TO NIGHT NURSE FOR BANDAR.
[2017-03-16 20:00] VITALS: BP 95/62
[2017-03-16] MEDS: ATORVASTATIN 10 MG TABLET PO SCH (21:42)
[2017-03-17] VITALS (9 sets, daily range): BP systolic 103–134; BP diastolic 54–73
[2017-03-17] MEDS: PIPERACILLIN /TAZOBACTAM 3.375 G in IV D5W 50 ML IV SCH ×3 (03:02→21:09)
[2017-03-17] MEDS: NUTREN PULMONARY 1,000 ML BAG GT PRN (04:00)
[2017-03-17 06:43] LABS: BASOPHILS # (AUTO) 0.1 /CMM (0.0-0.2); BASOPHILS % (AUTO) 0.4 % (0.0-2.0); EOSINOPHILS # (AUTO) 0.7 /CMM (0.0-0.7); EOSINOPHILS % (AUTO) 4.9 % (0.0-6.0); HEMATOCRIT 27 % (39-51); LYMPHOCYTES # (AUTO) 2.3 /CMM (0.8-4.8); LYMPHOCYTES % (AUTO) 15.8 % (20.0-44.0); MEAN CORPUSCULAR HEMOGLOBIN 32 PG (26.0-33.0); MEAN CORPUSCULAR HGB CONC 34 g/dl (31.0-36.0); MEAN CORPUSCULAR VOLUME 95 fL (80-96); MONOCYTES # (AUTO) 1.5 /CMM (0.1-1.30); MONOCYTES % (AUTO) 10.1 % (2.0-12.0); NEUTROPHILS % (AUTO) 68.8 % (43.0-81.0); PLATELET COUNT (AUTO) 244 /CMM (150-450); RDW COEFFICIENT OF VARIATION 13.9 (11.5-15.0); RED BLOOD CELL COUNT(AUTO) 2.79 MIL/uL (4.5-6.0); WHITE BLOOD COUNT (AUTO) 14.5 K/uL (4.3-11.0)
[2017-03-17 07:03] LABS: CALCIUM, SERUM 8.5 mg/dL (8.5-10.1); POTASSIUM 3.7 mmol/L (3.5-5.1)
--- NOTE | 2017-03-17 07:28 | NUR ---
BREANNA/RN: INITIAL NOTES,AM RECEIVED REPORT FROM NIGHT NURSE. RECEIVED PT EYES OPEN, DOES NOT FOLLOW COMMANDS.PT CHRONIC VENT TRACH, BETSYLEY 8, WITH VENT SETTINGS ORDERED BY MD, NO ACUTE DISTRESS NOTED. PT SINUS SANDI ON TELE. LEFT IG TLC NOTED, CLEAN DRY AND INTACT. GTUBE FEEDING INFUSING, TOLERATING WELL. RICO IN PLACE, DRAINING CLEEAR, YELLOW URINE. PT ON LOW AIR LOSS MATTRESS, TURNED AND REPOSITIONED. ALL NEEDS WILL BE MET, SAFETY MEASURES TAKEN, BED IN LOW POSITION, SIDE RAILS UP, CALL LIGHT WITHIN REACH. WILL CONTINUE TO MONITOR AND CARE.
[2017-03-17] MEDS: ASPIRIN 81 MG TAB.CHEW PO SCH (08:25)
[2017-03-17] MEDS: LACTOBACILLUS RHAMNOSUS GG 1 EACH CAP.SPRINK GT SCH ×2 (08:25→17:55)
[2017-03-17] MEDS: TRAMADOL HCL 50 MG TABLET GT SCH ×2 (08:25→21:09)
[2017-03-17] MEDS: DOCUSATE SODIUM LIQ 100 MG/10 ML UDC GT SCH (08:26)
[2017-03-17] MEDS: LEVETIRACETAM SOL (5 ML) 100 MG/ML UDC GT SCH ×2 (08:26→21:09)
[2017-03-17] MEDS: AMANTADINE HCL 100 MG CAPSULE GT SCH ×2 (08:26→20:29)
[2017-03-17] MEDS: PANTOPRAZOLE 40 MG TABLET.DR PO SCH (08:26)
[2017-03-17] MEDS: CHLORHEXIDINE GLUCONATE 15 ML UDC MM SCH ×2 (08:26→17:55)
[2017-03-17] MEDS: MUPIROCIN OINT 2% 22 GM TUBE SCH ×2 (08:30→21:11)
[2017-03-17] MEDS: HYDROGEL DRESSING 90 GM TUBE TP SCH (08:30)
--- NOTE | 2017-03-17 09:30 | NUR ---
BREANNA/RN: PT VOMITED. ZOFRAN GIVEN, MD CALLED, TUBE FEEDING HELD FOR ONE HOUR. NO RESIDUAL WHEN ASSESSED.
--- NOTE | 2017-03-17 10:00 | NUR ---
ICU/RN: TUBE FEEDING HELD FOR ONE FOUR POST VOMIT, WILL REASSESS AND RESUME FEEDINGS.
[2017-03-17] MEDS: ONDANSETRON HCL/PF 4 MG/2 ML VIAL IVP PRN ×2 (10:04→19:32)
[2017-03-17] MEDS: IV D5W 1,000 ML IV PRN (12:22)
[2017-03-17] MEDS: VANCOMYCIN 1 GM in IV D5W 250 ML IV SCH (12:22)
[2017-03-17] MEDS ORDERED: IV D5W 1,000 ML IV SCH (14:30)
[2017-03-17] MEDS: LEVOFLOXACIN 750 MG /D5W 150ML 750 MG in PREMIX 1 EA IV SCH (14:56)
--- NOTE | 2017-03-17 15:00 | NUR ---
ICU/RN: AT BEDSIDE. INFORMED THAT PT VOMITED. MD DISCONTINUED 300 ML FREE WATER FLUSHES AND LEFT 100 ML TID. TUBE FEEDING ON AND TOLERATING WELL, NO MORE VOMITING NOTED. WILL CONTINUE TO MONITOR AND KEEP HOB ELEVATED TO PREVENT ASPIRATION.
--- NOTE | 2017-03-17 19:11 | NUR ---
ICU/RN: ENDING NOTES,AM REPORT ENDORSED TO NIGHT NURSE FOR CONTINUATION OF CARE. ALL NEEDS MET. PT CONTINUES ON FULL VENT SUPPORT WITH SETTINGS ORDERED BY MD, NO ACUTE DISTRESS NOTED AT THIS TIME. TUBE FEEDING INFUSING ORDERED, NO MORE VOMITING NOTED. RICO DRAINING YELLOW URINE. SAFETY MEASURES TAKEN, BED IN LOW POSITION, SIDE RAILS UP, CALL LIGHT WITHIN REACH.
[2017-03-17] MEDS ORDERED: PIPERACILLIN /TAZOBACTAM 3.375 G in IV D5W 50 ML IV SCH (21:00)
[2017-03-17] MEDS ORDERED: MORPHINE SULFATE INJ 2 MG/ML DISP.SYRIN IV PRN (21:00)
[2017-03-17] MEDS ORDERED: LORAZEPAM INJ 2 MG/ML VIAL IV PRN (21:00)
[2017-03-17] MEDS ORDERED: MORPHINE SULFATE INJ 2 MG/ML DISP.SYRIN ONE (21:04)
[2017-03-17] MEDS: ATORVASTATIN 10 MG TABLET PO SCH (21:10)
[2017-03-17] MEDS ORDERED: IV SET PRIMARY PUMP SET 1 EA INFUS.SET MC ONE (21:19)
[2017-03-17] MEDS: IV NS 0.9% 250 ML IV PRN (21:28)
[2017-03-18] VITALS (7 sets, daily range): BP systolic 91–128; BP diastolic 40–70
[2017-03-18] MEDS: IV D5W 1,000 ML IV PRN (02:00)
[2017-03-18] MEDS: NUTREN PULMONARY 1,000 ML BAG GT PRN (02:00)
[2017-03-18] MEDS: PIPERACILLIN /TAZOBACTAM 3.375 G in IV D5W 50 ML IV SCH ×4 (02:00→20:54)
[2017-03-18 06:35] LABS: BASOPHILS % (AUTO) 0.2 % (0.0-2.0); EOSINOPHILS # (AUTO) 0.5 /CMM (0.0-0.7); EOSINOPHILS % (AUTO) 3.1 % (0.0-6.0); HEMATOCRIT 26 % (39-51); HEMOGLOBIN 8.7 g/dL (13.5-17.5); LYMPHOCYTES # (AUTO) 2.4 /CMM (0.8-4.8); LYMPHOCYTES % (AUTO) 16.1 % (20.0-44.0); MEAN CORPUSCULAR HEMOGLOBIN 32 PG (26.0-33.0); MEAN CORPUSCULAR HGB CONC 34 g/dl (31.0-36.0); MEAN CORPUSCULAR VOLUME 95 fL (80-96); MONOCYTES # (AUTO) 1.7 /CMM (0.1-1.30); MONOCYTES % (AUTO) 11.2 % (2.0-12.0); NEUTROPHILS # (AUTO) 10.3 /CMM (1.8-8.9); NEUTROPHILS % (AUTO) 69.4 % (43.0-81.0); PLATELET COUNT (AUTO) 245 /CMM (150-450); RED BLOOD CELL COUNT(AUTO) 2.69 MIL/uL (4.5-6.0); WHITE BLOOD COUNT (AUTO) 14.9 K/uL (4.3-11.0)
--- NOTE | 2017-03-18 07:00 | NUR ---
BREANNA INITIAL NOTE RECEIVED PT OBTUNDED. ON MECHANICAL VENT, SETTINGS ORDERED, RESPIRATIONS EVEN AND UNLABORED, NO SOB OR DISTRESS PRESENT, SATURATING AT 99%. TELE MONITOR REVEALS SINUS SANDI, HR= 59. RICO CATHETER DRAINING TO GRAVITY CLEAR, YELLOW URINE WITH LITTLE HEMATURIA. LIJ TLC RUNNING D5W @ 100 MLS/HR. IV SITE FLUSHED, PATENT, INTACT AND FREE OF REDNESS, SWELLING AND INFLAMMATION. G-TUBE PRESENT AND RUNNING NUTREN @ 55 MLS/HR. SAFETY MEASURES TAKEN: BED LOCKED AND IN LOW POSITION, SIDE RAILS UP X2 AND BED ALARM ON, WILL CONTINUE TO MONITOR.
[2017-03-18 07:12] LABS: CALCIUM, SERUM 8.4 mg/dL (8.5-10.1); MAGNESIUM 1.9 mg/dL (1.8-2.4); PHOSPHORUS 2.6 mg/dL (2.5-4.9); POTASSIUM 3.5 mmol/L (3.5-5.1)
[2017-03-18] MEDS: PANTOPRAZOLE 40 MG TABLET.DR PO SCH (08:26)
[2017-03-18] MEDS: DOCUSATE SODIUM LIQ 100 MG/10 ML UDC GT SCH (08:26)
[2017-03-18] MEDS: TRAMADOL HCL 50 MG TABLET GT SCH ×2 (08:26→20:56)
[2017-03-18] MEDS: LEVETIRACETAM SOL (5 ML) 100 MG/ML UDC GT SCH ×2 (08:26→20:55)
[2017-03-18] MEDS: CHLORHEXIDINE GLUCONATE 15 ML UDC MM SCH ×2 (08:27→16:34)
[2017-03-18] MEDS: ASPIRIN 81 MG TAB.CHEW PO SCH (08:27)
[2017-03-18] MEDS: AMANTADINE HCL 100 MG CAPSULE GT SCH ×2 (08:27→20:56)
[2017-03-18] MEDS: LACTOBACILLUS RHAMNOSUS GG 1 EACH CAP.SPRINK GT SCH ×2 (08:27→16:34)
[2017-03-18] MEDS: HYDROGEL DRESSING 90 GM TUBE TP SCH (08:28)
[2017-03-18] MEDS: MUPIROCIN OINT 2% 22 GM TUBE SCH ×2 (08:28→20:56)
--- NOTE | 2017-03-18 12:15 | NUR ---
DR. Franco HDEZ AT BEDSIDE. PER , OK TO DISCONTINUE IVF OF D5W. IVF DISCONTINUED PER MD ORDER. WILL CONTINUE TO MONITOR.
[2017-03-18] MEDS ORDERED: FUROSEMIDE 20 MG/2 ML VIAL IV ONE (15:30)
[2017-03-18] MEDS: IV NS 0.9% 250 ML IV PRN (18:45)
[2017-03-18] MEDS: HYDROCODONE/APAP 5/325MG 1 EACH TABLET PO PRN (20:56)
[2017-03-18] MEDS: ATORVASTATIN 10 MG TABLET PO SCH (21:00)
[2017-03-18] MEDS ORDERED: PIPERACILLIN /TAZOBACTAM 3.375 G in IV D5W 50 ML IV SCH (21:00)
[2017-03-19] VITALS (7 sets, daily range): BP systolic 55–104; BP diastolic 43–57
[2017-03-19] MEDS: HYDROCODONE/APAP 5/325MG 1 EACH TABLET PO PRN (01:53)
[2017-03-19] MEDS: PIPERACILLIN /TAZOBACTAM 3.375 G in IV D5W 50 ML IV SCH ×4 (03:43→21:00)
[2017-03-19] MEDS: NUTREN PULMONARY 1,000 ML BAG GT PRN (06:11)
[2017-03-19 06:35] LABS: BASOPHILS % (AUTO) 0.2 % (0.0-2.0); EOSINOPHILS # (AUTO) 0.5 /CMM (0.0-0.7); EOSINOPHILS % (AUTO) 4.7 % (0.0-6.0); HEMATOCRIT 26 % (39-51); HEMOGLOBIN 8.9 g/dL (13.5-17.5); LYMPHOCYTES # (AUTO) 2.3 /CMM (0.8-4.8); LYMPHOCYTES % (AUTO) 21.7 % (20.0-44.0); MEAN CORPUSCULAR HEMOGLOBIN 33 PG (26.0-33.0); MEAN CORPUSCULAR HGB CONC 34 g/dl (31.0-36.0); MEAN CORPUSCULAR VOLUME 95 fL (80-96); MONOCYTES # (AUTO) 1.2 /CMM (0.1-1.30); MONOCYTES % (AUTO) 11.2 % (2.0-12.0); NEUTROPHILS # (AUTO) 6.5 /CMM (1.8-8.9); NEUTROPHILS % (AUTO) 62.2 % (43.0-81.0); PLATELET COUNT (AUTO) 260 /CMM (150-450); RDW COEFFICIENT OF VARIATION 14.2 (11.5-15.0); RED BLOOD CELL COUNT(AUTO) 2.72 MIL/uL (4.5-6.0); WHITE BLOOD COUNT (AUTO) 10.4 K/uL (4.3-11.0)
[2017-03-19 06:51] LABS: CALCIUM, SERUM 8.5 mg/dL (8.5-10.1); MAGNESIUM 2.1 mg/dL (1.8-2.4); PHOSPHORUS 3.1 mg/dL (2.5-4.9); POTASSIUM 3.3 mmol/L (3.5-5.1)
--- NOTE | 2017-03-19 07:30 | NUR ---
RN NOTE RECEIVED PT LAYING IN BED, OBTUNDED. ON MECHANICAL VENT, SETTINGS ORDERED, RESPIRATIONS EVEN AND UNLABORED. TELE MONITOR SHOWS SR HR 60BPM. RICO CATHETER DRAINING TO GRAVITY CLEAR, YELLOW URINE. LEFT IJ TLC RUNNING NS TKO. G-TUBE PRESENT AND RUNNING NUTREN @ 55 MLS/HR NO RESIDUAL NOTED. REPOSITIONED FOR COMFORT. SAFETY MAINTAINED, BED LOCKED AND IN LOW POSITION, SIDE RAILS UP X2 AND BED ALARM ON, ISOLATION PRECAUTION OBSERVED, CALL LIGHT WITHIN REACH, WILL CONTINUE TO MONITOR.
--- NOTE | 2017-03-19 07:47 | NUR ---
RT PATIENT REC'D TRACHED ON [facility] VENT WITH ORDERS SET PER MD TOLERATED WELL. VENT ALARMS CHECKED + AUDIBLE. VENT PLUGGED INTO RED OUTLET. CUFF PRESSURE CHECKED RFID ANALYST. TRACH SECURE AND IN PROPER POSITION VIA FOAM TRACH TIE. B/S DIM COARSE. SUCTIONED WITH MOD AMT PALE SEMITHICK SECRETIONS. PALE APPEARS COMFORTABLE AND IN NO RESP DISTRESS. AMBU BAG AT [facility]. CONTINUE CURRENT PLAN OF RESP CARE. Addendum: 03/19/17 at 0851 by TAMMIE SMALL RT Amended: Links added.
[2017-03-19] MEDS: DOCUSATE SODIUM LIQ 100 MG/10 ML UDC GT SCH (09:01)
[2017-03-19] MEDS: CHLORHEXIDINE GLUCONATE 15 ML UDC MM SCH ×2 (09:01→16:37)
[2017-03-19] MEDS: LACTOBACILLUS RHAMNOSUS GG 1 EACH CAP.SPRINK GT SCH ×2 (09:01→16:37)
[2017-03-19] MEDS: LEVETIRACETAM SOL (5 ML) 100 MG/ML UDC GT SCH ×2 (09:01→21:01)
[2017-03-19] MEDS: AMANTADINE HCL 100 MG CAPSULE GT SCH ×2 (09:01→21:01)
[2017-03-19] MEDS: ASPIRIN 81 MG TAB.CHEW PO SCH (09:01)
[2017-03-19] MEDS: PANTOPRAZOLE 40 MG TABLET.DR PO SCH (09:01)
[2017-03-19] MEDS: TRAMADOL HCL 50 MG TABLET GT SCH ×2 (09:01→21:12)
[2017-03-19] MEDS: HYDROGEL DRESSING 90 GM TUBE TP SCH (09:02)
[2017-03-19] MEDS: MUPIROCIN OINT 2% 22 GM TUBE SCH ×2 (09:03→21:12)
[2017-03-19] MEDS ORDERED: POTASSIUM CHLORIDE 20 MEQ POWDER PACKET GT ONE (10:30)
--- NOTE | 2017-03-19 18:37 | NUR ---
RN NOTES PT RESTING IN BED COMFORTABLY, TOLERATING CURRENT VENT SETTINGS WELL. NO ACUTE CHANGE IN CONDITION NOTED. ALL DUE MEDS GIVEN, NEEDS ATTENDED. ONGOING GTF NUTREN@55ML/HR TOLERATED WELL, NO RESIDUAL. KEP DRY CLEAN AND COMFORTABLE. SAFETY MAINTAINED. MONITORED ACCORDINGLY
--- NOTE | 2017-03-19 19:30 | NUR ---
OPERATIONS INTELLIGENCE INITIAL NOTES RECEIVED PATIENT OBTUNDED, OPENS EYES, VENT DEPENDENT. NO S/S OF PAIN OR DISCOMFORT. NO RESPIRATORY DISTRESS NOTED. WITH VENT SETTINGS AC 12, VT 500, FIO2 40%, 0 PEEP. TRACH C/D/I. ON TELE MONITOR SINUS SANDI 58. SKIN WARM AND DRY TO TOUCH. TOLERATING GTF, GT PATENT AND INTACT. F/C DRAINING BY GRAVITY. ISOLATION PRECAUTIONS OBSERVED. HOB KEPT ELEVATED. SIDE RAILS UP AND LOCKED. BED KEPT AT LOWEST POSITION. CALL LIGHT KEPT WITHIN EASY REACH. WILL CONTINUE TO MONITOR.
[2017-03-19] MEDS: ATORVASTATIN 10 MG TABLET PO SCH (21:01)
[2017-03-20] VITALS (7 sets, daily range): BP systolic 90–99; BP diastolic 46–54
[2017-03-20] MEDS: PIPERACILLIN /TAZOBACTAM 3.375 G in IV D5W 50 ML IV SCH ×3 (03:38→14:32)
[2017-03-20] MEDS: NUTREN PULMONARY 1,000 ML BAG GT PRN (03:42)
[2017-03-20] MEDS: IV NS 0.9% 250 ML IV PRN (03:58)
[2017-03-20 07:17] LABS: CALCIUM, SERUM 8.3 mg/dL (8.5-10.1); CREATININE 0.8 mg/dL (0.6-1.3); MAGNESIUM 2.2 mg/dL (1.8-2.4); PHOSPHORUS 2.6 mg/dL (2.5-4.9); POTASSIUM 3.5 mmol/L (3.5-5.1)
--- NOTE | 2017-03-20 07:20 | NUR ---
TATTOO TECHNICIAN INITIAL NOTES REPORT TAKEN VIA PM RN . DAY SHIFT RN RECEIVED PATIENT OBTUNDED, OPENS EYES, VENT DEPENDENT. NO S/S OF PAIN OR DISCOMFORT. NO RESPIRATORY DISTRESS NOTED. WITH VENT SETTINGS AC 12, VT 500, FIO2 40%, 0 PEEP. ON TELE MONITOR SINUS SANDI 54. SKIN WARM AND DRY TO TOUCH. TOLERATING G-TUBE FEEDING , GTUBE PATENT AND INTACT. F/C DRAINING BY GRAVITY. ISOLATION PRECAUTIONS OBSERVED. HOB KEPT ELEVATED. SIDE RAILS UP AND LOCKED. BED KEPT AT LOWEST POSITION. CALL LIGHT KEPT WITHIN EASY REACH. WILL CONTINUE TO MONITOR.
[2017-03-20] MEDS: DOCUSATE SODIUM LIQ 100 MG/10 ML UDC GT SCH (08:05)
[2017-03-20] MEDS: AMANTADINE HCL 100 MG CAPSULE GT SCH ×2 (08:05→21:10)
[2017-03-20] MEDS: PANTOPRAZOLE 40 MG TABLET.DR PO SCH (08:05)
[2017-03-20] MEDS: TRAMADOL HCL 50 MG TABLET GT SCH ×2 (08:05→21:10)
[2017-03-20] MEDS: ASPIRIN 81 MG TAB.CHEW PO SCH (08:05)
[2017-03-20] MEDS: LACTOBACILLUS RHAMNOSUS GG 1 EACH CAP.SPRINK GT SCH ×2 (08:05→16:43)
[2017-03-20] MEDS: LEVETIRACETAM SOL (5 ML) 100 MG/ML UDC GT SCH ×2 (08:05→21:10)
[2017-03-20] MEDS: CHLORHEXIDINE GLUCONATE 15 ML UDC MM SCH ×2 (08:05→16:43)
[2017-03-20] MEDS: MUPIROCIN OINT 2% 22 GM TUBE SCH ×2 (08:08→21:11)
[2017-03-20 08:09] LABS: BASOPHILS % (AUTO) 0.3 % (0.0-2.0); EOSINOPHILS # (AUTO) 0.5 /CMM (0.0-0.7); EOSINOPHILS % (AUTO) 4.9 % (0.0-6.0); HEMATOCRIT 25 % (39-51); HEMOGLOBIN 8.5 g/dL (13.5-17.5); LYMPHOCYTES % (AUTO) 20.2 % (20.0-44.0); MEAN CORPUSCULAR HEMOGLOBIN 33 PG (26.0-33.0); MEAN CORPUSCULAR HGB CONC 34 g/dl (31.0-36.0); MEAN CORPUSCULAR VOLUME 95 fL (80-96); MONOCYTES % (AUTO) 10.3 % (2.0-12.0); NEUTROPHILS # (AUTO) 6.4 /CMM (1.8-8.9); NEUTROPHILS % (AUTO) 64.3 % (43.0-81.0); PLATELET COUNT (AUTO) 270 /CMM (150-450); RDW COEFFICIENT OF VARIATION 13.2 (11.5-15.0); WHITE BLOOD COUNT (AUTO) 9.9 K/uL (4.3-11.0)
[2017-03-20] MEDS: Z GUARD REMEDY 2 OZ OINT TP PRN (08:09)
[2017-03-20] MEDS: HYDROGEL DRESSING 90 GM TUBE TP SCH (08:09)
[2017-03-20] MEDS ORDERED: FUROSEMIDE 20 MG/2 ML VIAL IV ONE (11:30)
--- NOTE | 2017-03-20 11:58 | NUR ---
LAUNDRY LABORER NOTE PER MD ORDERS PLACE PT ON CPAP 5 PS 8 : RESUME AC FOR ANY SIGNS OF DISTRESS NURSING STAFF WILL CONTINUE TO MONITOR PATIENTS PROGRESS
[2017-03-20] MEDS ORDERED: DOSING PER PHARMACY-TOBRA INHALATION 1 EA XX PRN (16:30)
--- NOTE | 2017-03-20 18:42 | NUR ---
RN CLOSING NOTES PT IN STABLE CONDITION, ALL MD ORDERS CARRIED OUT, TOLERATING MECH VENT WELL ( PER MD PLACE PATIENT ON CPAP 5 PS 8 RESUME AC FOR ANY SIGNS OF DISTRESS , IV CLEAN DRY AND INTACT, NO SIGNS OF INFECTION, F/C DRAINING WELL, GT INTACT, TOLERATING FEEDING WELL. CALL LIGHT WITHIN EASY REACH, SAFETY MEASURES MAINTAINED, REPORT GIVEN TO NIGHT NURSE FOR BANDAR.
[2017-03-20] MEDS: TOBRAMYCIN 80 MG/2 ML VIAL INH SCH (19:40)
--- NOTE | 2017-03-20 20:00 | NUR ---
EVP AND CHIEF OPERATING OFFICER NOTE PT IN BED OBTUNDED OPEN EYES. ON VENT/TRACH PORTEX 8, AC 12 TV 500 FIO2 40% PEEP 5. NO DISTRESS OR DISCOMFORT NOTED. NO SS OF PAIN NOTED. GT INFUSING NUTREN AT 55 ML/HR, 0 ML RESIDUAL NOTED. LIJ TLC INTACT AND PATENT TKO, NO S/S OF INFILTRATION NOTED. REPOSITION HIM FOR SKIN MANAGEMENT AND CONTINUE TO DO THAT Q2H DURING THE SHIFT. SIDE RAILS UP X 3 AND CALL LIGHT WITHIN REACH. VSS. CONTINUE TO MONITOR HIM. ............................................................................................ ................................................................. Addendum: 03/20/17 at 2020 by MARLENY MARTIN RN ON TELE SB WITH ELEVATED T WAVE AND ARRHYTHMIA HR 51
[2017-03-20] MEDS: ATORVASTATIN 10 MG TABLET PO SCH (21:10)
[2017-03-21] VITALS (7 sets, daily range): BP systolic 90–120; BP diastolic 46–76
[2017-03-21] MEDS: NUTREN PULMONARY 1,000 ML BAG GT PRN (01:40)
--- NOTE | 2017-03-21 06:37 | NUR ---
MEALS ON WHEELS DRIVER NOTE PT IN BED WITH EYES CLOSED, OBTUNDED. NO CHANGE IN CONDITION. NO DISTRESS OR DISCOMFORT NOTED. GTF INFUSING WELL, 0 ML RESIDUAL. FLUSHED GT WITH H2O ORDERED. F/C INTACT AND PATENT DRAINING YELLOWISH COLOR URINE. ON TELE SB WITH ELEVATED T WAVE HR 56. REPOSITION HIM Q2H. KEPT HIM DRY AND CLEAN.
[2017-03-21 06:54] LABS: BASOPHILS % (AUTO) 0.4 % (0.0-2.0); EOSINOPHILS # (AUTO) 0.4 /CMM (0.0-0.7); EOSINOPHILS % (AUTO) 3.3 % (0.0-6.0); HEMATOCRIT 26 % (39-51); LYMPHOCYTES # (AUTO) 1.9 /CMM (0.8-4.8); LYMPHOCYTES % (AUTO) 17.8 % (20.0-44.0); MEAN CORPUSCULAR HEMOGLOBIN 33 PG (26.0-33.0); MEAN CORPUSCULAR HGB CONC 34 g/dl (31.0-36.0); MEAN CORPUSCULAR VOLUME 96 fL (80-96); MONOCYTES # (AUTO) 1.2 /CMM (0.1-1.30); MONOCYTES % (AUTO) 11.2 % (2.0-12.0); NEUTROPHILS # (AUTO) 7.2 /CMM (1.8-8.9); NEUTROPHILS % (AUTO) 67.3 % (43.0-81.0); PLATELET COUNT (AUTO) 294 /CMM (150-450); RDW COEFFICIENT OF VARIATION 14.7 (11.5-15.0); RED BLOOD CELL COUNT(AUTO) 2.74 MIL/uL (4.5-6.0); WHITE BLOOD COUNT (AUTO) 10.7 K/uL (4.3-11.0)
--- NOTE | 2017-03-21 07:00 | NUR ---
RN NOTE RECEIVED PT ON BED, OBTUNDED, VENT DEPENDENT , TRACH CARE DONE, TOLERATING CURRENT VENT SETTING WELL, PORTEX 8, AC 12 TV 500 FIO2 40% PEEP 5. NO DISTRESS OR DISCOMFORT NOTED. GT INFUSING NUTREN AT 55 ML/HR, 0 ML RESIDUAL NOTED. LIJ TLC INTACT AND PATENT TKO, SIDE RAILS UP X 3 AND CALL LIGHT WITHIN REACH. CONTINUE TO MONITOR PT CLOSELY AND NOTIFY MD FOR ANY SIGNIFICANT CHANGES.
[2017-03-21 07:18] LABS: CALCIUM, SERUM 8.5 mg/dL (8.5-10.1); CREATININE 0.8 mg/dL (0.6-1.3); MAGNESIUM 2.2 mg/dL (1.8-2.4); PHOSPHORUS 2.7 mg/dL (2.5-4.9); POTASSIUM 3.7 mmol/L (3.5-5.1)
[2017-03-21] MEDS: TOBRAMYCIN 80 MG/2 ML VIAL INH SCH ×2 (08:02→19:29)
[2017-03-21] MEDS: AMANTADINE HCL 100 MG CAPSULE GT SCH ×2 (08:04→21:30)
[2017-03-21] MEDS: TRAMADOL HCL 50 MG TABLET GT SCH ×2 (08:04→21:31)
[2017-03-21] MEDS: DOCUSATE SODIUM LIQ 100 MG/10 ML UDC GT SCH (08:04)
[2017-03-21] MEDS: PANTOPRAZOLE 40 MG TABLET.DR PO SCH (08:04)
[2017-03-21] MEDS: LEVETIRACETAM SOL (5 ML) 100 MG/ML UDC GT SCH ×2 (08:05→21:29)
[2017-03-21] MEDS: ASPIRIN 81 MG TAB.CHEW PO SCH (08:05)
[2017-03-21] MEDS: LACTOBACILLUS RHAMNOSUS GG 1 EACH CAP.SPRINK GT SCH ×2 (08:05→16:57)
[2017-03-21] MEDS: CHLORHEXIDINE GLUCONATE 15 ML UDC MM SCH ×2 (08:05→16:57)
[2017-03-21] MEDS: HYDROGEL DRESSING 90 GM TUBE TP SCH (08:06)
[2017-03-21] MEDS: MUPIROCIN OINT 2% 22 GM TUBE SCH ×2 (08:06→21:31)
--- NOTE | 2017-03-21 12:00 | NUR ---
RN NOTES PT STABLE , TOLERATING TF WELL, NO RESIDUAL NOTED, VSS STABLE , CONTINUE TO MONITOR.
--- NOTE | 2017-03-21 18:28 | NUR ---
RN NOTES PT REMAINS THE SAME , ON CPAP OF 5 PRESSURE SUPPORT 8 ,40% FIO2, NO TF RESIDUAL NOTED, [place] DRAINING TO GRAVITY WITH YELLOW URINE , NO SIGNIFICANT CHANGES NOTED ON THIS SHIFT .
--- NOTE | 2017-03-21 19:36 | NUR ---
[facility] WITH NOTED SETTINGS. SUCTIONED LARGE AMOUNT OF YELLOWISH THICK SECRETIONS. VENT ALARMED AND WORKING,VENT PLUGGED INTO RED OUTLET. AMBU BAG AT [facility], BILATERAL BS NOTED. NO RESPIRATORY DISTRESS NOTED. WILL CONTINUE TO MONITOR.
--- NOTE | 2017-03-21 20:00 | NUR ---
PRESCHOOL SUBSTITUTE TEACHER NOTE PT IN BED OBTUNDED OPEN EYES. ON VENT/TRACH PORTEX 8 TOLERATING THE SETTINGS WELL. SUCTIONED HIM PRN. SMALL THIN WHITE SECRETIONS NOTED. NO DISTRESS OR DISCOMFORT NOTED. NO S/S OF PAIN NOTED. GT INFUSING NUTREN AT 55 ML/HR, 0 ML RESIDUAL NOTED. LIJ TLC INTACT AND PATENT TKO, NO S/S OF INFILTRATION NOTED. REPOSITION HIM FOR SKIN MANAGEMENT. SIDE RAILS UP X 3 AND CALL LIGHT WITHIN REACH. VSS. CONTINUE TO MONITOR HIM.
[2017-03-21] MEDS: ATORVASTATIN 10 MG TABLET PO SCH (21:30)
[2017-03-22] VITALS: BP 93/57
[2017-03-22] MEDS: NUTREN PULMONARY 1,000 ML BAG GT PRN (02:08)
[2017-03-22 04:00] VITALS: BP 97/53
[2017-03-22 06:28] LABS: BASOPHILS % (AUTO) 0.2 % (0.0-2.0); EOSINOPHILS # (AUTO) 0.4 /CMM (0.0-0.7); EOSINOPHILS % (AUTO) 4.2 % (0.0-6.0); HEMATOCRIT 26 % (39-51); LYMPHOCYTES # (AUTO) 1.9 /CMM (0.8-4.8); LYMPHOCYTES % (AUTO) 19.2 % (20.0-44.0); MEAN CORPUSCULAR HEMOGLOBIN 33 PG (26.0-33.0); MEAN CORPUSCULAR HGB CONC 34 g/dl (31.0-36.0); MEAN CORPUSCULAR VOLUME 96 fL (80-96); MONOCYTES # (AUTO) 1.1 /CMM (0.1-1.30); MONOCYTES % (AUTO) 11.5 % (2.0-12.0); NEUTROPHILS # (AUTO) 6.4 /CMM (1.8-8.9); NEUTROPHILS % (AUTO) 64.9 % (43.0-81.0); PLATELET COUNT (AUTO) 282 /CMM (150-450); RDW COEFFICIENT OF VARIATION 15.2 (11.5-15.0); RED BLOOD CELL COUNT(AUTO) 2.74 MIL/uL (4.5-6.0); WHITE BLOOD COUNT (AUTO) 9.9 K/uL (4.3-11.0)
--- NOTE | 2017-03-22 06:30 | NUR ---
CAR RUNNER NOTE PT IN BED OBTUNDED. WITH EYES OPEN. NO DISTRESS OR DISCOMFORT NOTED. NO CHANGE IN CONDITION. TOLERATING VENT SETTINGS. GT FEEDING INFUSING WELL, 0 ML RESIDUAL NOTED. F/C INTACT AND PATENT DRAINING WELL YELLOWISH COLOR URINE. ON TELE SB HR 48. SIDE RAILS UP X 3 AND CALL LIGHT WITHIN REACH. WILL ENDORSE TO DAY SHIFT NURSE FOR CONTINUE TO CARE.
--- NOTE | 2017-03-22 07:05 | NUR ---
RN NOTE RECEIVED PT ON BED, OBTUNDED ,VENT/TRACH PORTEX 8 TOLERATING THE SETTINGS WELL. TRACH SUCTIONING DONE , SMALL THIN WHITE SECRETIONS NOTED.NO DISTRESS NOTED ,TOLERATING GT NUTREN AT 55 ML/HR, 0 ML RESIDUAL NOTED. L IJ TLC INTACT AND PATENT TKO, SIDE RAILS UP X 3 AND CALL LIGHT WITHIN REACH. CONTINUE TO MONITOR PT CLOSELY AND NOTIFY MD FOR ANY SIGNIFICANT CHANGES.
[2017-03-22 07:06] LABS: CALCIUM, SERUM 8.8 mg/dL (8.5-10.1); CREATININE 0.6 mg/dL (0.6-1.3); MAGNESIUM 2.2 mg/dL (1.8-2.4); POTASSIUM 3.8 mmol/L (3.5-5.1)
[2017-03-22] MEDS: TOBRAMYCIN 80 MG/2 ML VIAL INH SCH ×2 (07:38→20:22)
[2017-03-22 08:00] VITALS: BP 102/55
[2017-03-22] MEDS: LACTOBACILLUS RHAMNOSUS GG 1 EACH CAP.SPRINK GT SCH ×2 (08:05→16:24)
[2017-03-22] MEDS: TRAMADOL HCL 50 MG TABLET GT SCH ×2 (08:05→21:15)
[2017-03-22] MEDS: DOCUSATE SODIUM LIQ 100 MG/10 ML UDC GT SCH (08:05)
[2017-03-22] MEDS: LEVETIRACETAM SOL (5 ML) 100 MG/ML UDC GT SCH ×2 (08:06→21:14)
[2017-03-22] MEDS: PANTOPRAZOLE 40 MG TABLET.DR PO SCH (08:06)
[2017-03-22] MEDS: CHLORHEXIDINE GLUCONATE 15 ML UDC MM SCH ×2 (08:06→16:24)
[2017-03-22] MEDS: ASPIRIN 81 MG TAB.CHEW PO SCH (08:06)
[2017-03-22] MEDS: AMANTADINE HCL 100 MG CAPSULE GT SCH ×2 (08:06→21:15)
[2017-03-22] MEDS: HYDROGEL DRESSING 90 GM TUBE TP SCH (08:07)
[2017-03-22] MEDS: MUPIROCIN OINT 2% 22 GM TUBE SCH (08:07)
[2017-03-22 10:11] LABS: ABG OXYGEN SATURATION 97.7 % (92.0-98.5); ABG PCO2 38.8 mmHg (35.0-45.0); ABG PH 7.473 (7.350-7.450); ABG PO2 111.1 mmHg (75.0-100.0); AaDO2 129.5 mmHg; COHb 0.4 % (0.5-1.5); MetHb 0.8 % (0.0-1.5); O2Hb 96.5 % (94.0-97.0); SITE, ABG Left Radial; VENT MODE, BG COOL AEROSOL 40%
[2017-03-22 12:00] VITALS: BP 93/51
--- NOTE | 2017-03-22 12:00 | NUR ---
RN NOTES PT STABLE , TOLERATING TF WELL, TRACH CARE DONE ,CONTINUE TO MONITOR.
[2017-03-22] MEDS ORDERED: TOBR40VI2 INH (14:02)
[2017-03-22] MEDS ORDERED: MUPIROCIN OINT 2% 22 GM TUBE SCH (14:40)
[2017-03-22 16:00] VITALS: BP 160/79
--- NOTE | 2017-03-22 17:00 | NUR ---
RN NOTES JACKY D/ILEANA PER DR OTERO ORDER .
--- NOTE | 2017-03-22 18:30 | NUR ---
RN NOTES PT REMAINS THE SAME , TOLERATING COOL AROUSAL WELL AT 40%. NO SOB NOTED , MEDICATED PER MD ORDER , NO SIGNIFICANT CHANGES NOTED ON THIS SHIFT.
[2017-03-22 20:00] VITALS: BP 95/55
--- NOTE | 2017-03-22 20:00 | NUR ---
SCREW MACHINE OPERATOR SWISS TYPE NOTE PT IN BED OBTUNDED. REMAIN WITH TRACH PORTEX #8 ON COOL AEROSOL 40%. TOLERATING IT WELL. NO DISTRESS OR DISCOMFORT NOTED. NO S/S OF PAIN NOTED. F/C INTACT AND PATENT DRAINING YELLOWISH COLOR URINE. LIJ TLC INTACT AND PATENT WITH TKO, NO S/S OF INFILTRATION NOTED. GTF NUTREN INFUSING AT 55 ML/HR, 0 ML RESIDUAL NOTED. REPOSITION HIM FOR SKIN MANAGEMENT. SIDE RAILS UP X 2 AND CALL LIGHT WITHIN REACH. VSS. CONTINUE TO MONITOR HIM. Addendum: 03/22/17 at 2017 by MARLENY MARTIN RN ON TELE SB HR 51
[2017-03-22] MEDS: ATORVASTATIN 10 MG TABLET PO SCH (21:15)
--- NOTE | 2017-03-22 22:30 | NUR ---
PRODUCE TEAM LEAD NOTE BED BATH GIVEN. ALSO SACRUM WOUND TX DONE. REPOSITION HIM FOR SKIN MANAGEMENT AND Q2H. KEPT HIM DRY AND CLEAN. ALL NEEDS ATTENDED.
[2017-03-23] VITALS: BP 104/63
[2017-03-23] MEDS: NUTREN PULMONARY 1,000 ML BAG GT PRN (00:23)
[2017-03-23 04:00] VITALS: BP 102/56
--- NOTE | 2017-03-23 06:39 | NUR ---
QUILT SEWER NOTE PT IN BED OBTUNDED. EYES OPEN. NO DISTRESS OR DISCOMFORT NOTED. NO S/S OF PAIN NOTED. SUCTIONED HIM FREQUENTLY MODERATE THICK YELLOWISH SECRETIONS NOTED. ON TELE SB HR 53. GTF INFUSING WELL, 0 ML RESIDUAL NOTED. ALSO FLUSHED THE GT ORDERED. REPOSITION HIM Q2H. KEPT HIM DRY AND CLEAN. ALL NEEDS ATTENDED. SIDE RAILS UP X 3 AND CALL LIGHT WITHIN REACH. WILL ENDORSE TO DAY SHIFT NURSE FOR CONTINUE TO CARE.
[2017-03-23] MEDS: TOBRAMYCIN 80 MG/2 ML VIAL INH SCH (07:16)
--- NOTE | 2017-03-23 07:20 | NUR ---
RN INITIAL NOTE REPORT RECEIVED FROM MARLENY SALTER PM SHIFT. PT OBTUNDED OPENS EYES. PORTEX #8 COOL AERSOL NO S/S OF SOB. TELE SB GTF NUTREN 55ML/HR NO RESIDUAL NOTED.IV LIJ TLC PATENT FLUSHED AND INTACT. WILL CONTINUE TO MONITOR. ALL SAFETY MEASURES IN PLACE.
[2017-03-23 08:00] VITALS: BP 85/44
[2017-03-23] MEDS: ASPIRIN 81 MG TAB.CHEW PO SCH (08:59)
[2017-03-23] MEDS: DOCUSATE SODIUM LIQ 100 MG/10 ML UDC GT SCH (08:59)
[2017-03-23] MEDS: LEVETIRACETAM SOL (5 ML) 100 MG/ML UDC GT SCH (08:59)
[2017-03-23] MEDS: CHLORHEXIDINE GLUCONATE 15 ML UDC MM SCH (08:59)
[2017-03-23] MEDS: LACTOBACILLUS RHAMNOSUS GG 1 EACH CAP.SPRINK GT SCH (08:59)
[2017-03-23] MEDS: TRAMADOL HCL 50 MG TABLET GT SCH (09:00)
[2017-03-23] MEDS: PANTOPRAZOLE 40 MG TABLET.DR PO SCH (09:00)
[2017-03-23] MEDS: AMANTADINE HCL 100 MG CAPSULE GT SCH (09:00)
[2017-03-23] MEDS: Z GUARD REMEDY 2 OZ OINT TP PRN (09:01)
[2017-03-23] MEDS: HYDROGEL DRESSING 90 GM TUBE TP SCH (09:02)
[2017-03-23 09:34] LABS: ABG BASE EXCESS 0.5 mmol/L; ABG OXYGEN SATURATION 96.8 % (92.0-98.5); ABG PCO2 33.9 mmHg (35.0-45.0); ABG PH 7.465 (7.350-7.450); ABG PO2 97.2 mmHg (75.0-100.0); COHb 0.2 % (0.5-1.5); MetHb 0.9 % (0.0-1.5); O2Hb 95.7 % (94.0-97.0); SITE, ABG Left Brachial; VENT MODE, BG CA 40%
[2017-03-23 12:00] VITALS: BP 98/51
--- NOTE | 2017-03-23 13:30 | NUR ---
RN NOTE RT CHANGED PT COOL AEROSOL TO 5L FIO2 28 %. PT STABLE SPO2 97%.
--- NOTE | 2017-03-23 15:50 | NUR ---
CASE FITTER NOTE PT DC TO [facility]. REPORT GIVEN @ 1200 TO CHON. PT STABLE TRANSFERRED VIA AMBULANCE REPORT GIVEN TO EMT. IV AND ID BAND REMOVED. ALL DC INSTRUCTIONS GIVEN TO EMT. NO BELONGINGS WITH PT. PHOTOS TAKEN AND PUT IN CHART. PT CLEAN WARM AND DRY. WOUND TX RENDERED. ALL MEDICATIONS GIVEN AND ALL ORDERS CARRIED OUT.
== END 2017-03-23 15:41 | DRG 720 ==
LOC: ER 00:37 → TELE 02:33 → ICU 04:07 → TELE-TD 03-15 16:42 → TELE1 03-19 11:11
PROVIDERS: ADMIT Nurse Practitioner Acute Care; ATTEND Family Medicine
PROC: 02HV33Z Insertion of Infusion Device into Superior Vena Cava, Percutaneous Approach (ICD-10-PCS; principal; 2017-03-11)
PROC: 5A1955Z Respiratory Ventilation, Greater than 96 Consecutive Hours (ICD-10-PCS; principal; 2017-03-11)
PROC: B548ZZA Ultrasonography of Superior Vena Cava, Guidance (ICD-10-PCS; principal; 2017-03-11)
DX: A41.9 Sepsis, unspecified organism (principal); J96.21 Acute and chronic respiratory failure with hypoxia; I21.4 Non-ST elevation (NSTEMI) myocardial infarction; N17.0 Acute kidney failure with tubular necrosis; R65.21 Severe sepsis with septic shock; I50.33 Acute on chronic diastolic (congestive) heart failure; J18.9 Pneumonia, unspecified organism; G93.40 Encephalopathy, unspecified; I13.0 Hypertensive heart and chronic kidney disease with heart failure and stage 1 through stage 4 chronic kidney disease, or unspecified chronic kidney disease; Z99.11 Dependence on respirator [ventilator] status; G93.1 Anoxic brain damage, not elsewhere classified; Z93.0 Tracheostomy status; R13.10 Dysphagia, unspecified; Z93.1 Gastrostomy status; G40.909 Epilepsy, unspecified, not intractable, without status epilepticus; N18.9 Chronic kidney disease, unspecified; E87.0 Hyperosmolality and hypernatremia; E86.9 Volume depletion, unspecified; E87.6 Hypokalemia; G20 Parkinson's disease; Z22.322 Carrier or suspected carrier of Methicillin resistant Staphylococcus aureus; R31.9 Hematuria, unspecified; Z87.820 Personal history of traumatic brain injury; V89.2XXS Person injured in unspecified motor-vehicle accident, traffic, sequela
CPT/HCPCS: 31720; 36415; 36600; 71010-TC; 74000-TC; 80048-TC; 80053-TC; 80061-TC; 80202-TC; 81000-TC; 82803-TC; 82962-TC; 83605-TC; 83735-TC; 83880; 84100-TC; 84484-TC; 85025-TC; 85378-TC; 85396; 85610-TC; 85730-TC; 87040-TC; 87070-TC; 87081-TC; 87086-TC; 87186-TC; 87400; 93307-TC; 93970-TC; 94002-TC; 94003-TC; 94640-TC; 94664-TC; 94761-TC; 94762-TC; 94799-TC; 99082-TC; A4216; A4606; A4623; A6248; A6402; A7526; C1751; J1644; J1940; J1953; J1956; J2270; J2370; J2405; J2543; J3260; J3370; J3480; J3490; J7030; J7050; J7060; J7070; Q9963; Q9967; Z7610

== ENCOUNTER 2019-11-08 10:58 | Inpatient (IN) | payer MEDICAID ==
[~2019-11-08] VITALS: Ht 172.7 cm; Wt 73.5 kg
[~2019-11-08 10:58] MED LIST: ACET160S GT; AMAN50SY GT; AMLO10TA7 GT; BISA10SU8 RC; CHLO473M2 MM; DEXT1DRO3 OP; DOCU100C36 GT; HEPA500013 SQ; HYDR-4076 GT; IPRA3AMP23 IH; LEVE1000 GT; MAGN400O6 GT; NA P133E RC; TOBR40VI2 INH; TRAM50TA2 GT
--- NOTE | 2019-11-08 11:08 | NUR ---
BIB EMS FROM [facility], FULL CODE, C/O COFFEE GROUND EMISIS. TO ER BED 8, HOOKED TO MONITOR, CHANGED TO HOSP GOWN, PROVIDED W WARM BLANKET, AOx0, NOTED W TRACHEOSTOMY AND G-TUBE, NOTED W PRODUCTIVE COUGH, . AWAITING MD MCKEON
--- NOTE | 2019-11-08 11:14 | NUR ---
MOVE SHEET TURNED IN
[2019-11-08] MEDS ORDERED: SIME80TA15 GT (11:24)
[2019-11-08] MEDS ORDERED: BUDE0.5A4 IH (11:24)
[2019-11-08] MEDS ORDERED: ONDA4TAB5 GT (11:24)
[2019-11-08] MEDS ORDERED: OMEP20CA15 PO (11:24)
[2019-11-08] MEDS ORDERED: NUT.237L25 GT (11:24)
[2019-11-08] MEDS ORDERED: IPRA3AMP23 IH (11:24)
[2019-11-08] MEDS ORDERED: IV NS 0.9% 500 ML BAG IV ONE (11:30)
[2019-11-08 11:31] LABS: BASOPHILS # (AUTO) 0.1 /CMM (0.0-0.2); BASOPHILS % (AUTO) 0.6 % (0.0-2.0); EOSINOPHILS % (AUTO) 0.5 % (0.0-6.0); HEMATOCRIT 40 % (39-51); HEMOGLOBIN 13.6 g/dL (13.5-17.5); LYMPHOCYTES # (AUTO) 2.1 /CMM (0.8-4.8); LYMPHOCYTES % (AUTO) 12.5 % (20.0-44.0); MEAN CORPUSCULAR HGB CONC 34 g/dl (31.0-36.0); MEAN CORPUSCULAR VOLUME 98 fL (80-96); MONOCYTES # (AUTO) 1.2 /CMM (0.1-1.30); NEUTROPHILS # (AUTO) 13.3 /CMM (1.8-8.9); NEUTROPHILS % (AUTO) 79.4 % (43.0-81.0); PLATELET COUNT (AUTO) 262 /CMM (150-450); RED BLOOD CELL COUNT(AUTO) 4.07 MIL/uL (4.5-6.0); WHITE BLOOD COUNT (AUTO) 16.8 K/uL (4.3-11.0)
--- NOTE | 2019-11-08 11:31 | NUR ---
INTERNAL COMBUSTION ENGINEER AT BEDSIDE
--- NOTE | 2019-11-08 11:37 | NUR ---
MOVE SHEET SUBMITTED AND CALLED FOR [facility] BED
[2019-11-08 11:42] LABS: CALCIUM, SERUM 9.1 mg/dL (8.5-10.1); CARBON DIOXIDE 28 mmol/L (21-32); CHLORIDE 99 mmol/L (98-107); CREATININE 1.2 mg/dL (0.6-1.3); GLUCOSE 97 mg/dL (74-106); POTASSIUM 4.1 mmol/L (3.5-5.1); SODIUM SERUM 135 mmol/L (136-145); UREA NITROGEN, BLOOD 31 mg/dL (7-18)
[2019-11-08 11:46] LABS: ALANINE AMINOTRANSFERASE 71 U/L (12-78); ALBUMIN 3.3 g/dL (3.4-5.0); ALKALINE PHOSPHATASE 159 U/L (46-116); ASPARTATE AMINOTRANSFERASE 29 U/L (15-37); BILIRUBIN,DIRECT 0.1 mg/dL (0.0-0.2); BILIRUBIN,TOTAL 0.4 mg/dL (0.2-1.0); TOTAL PROTEIN, SERUM 7.8 g/dL (6.4-8.2)
[2019-11-08 12:14] LABS: APPEARANCE,URINE Clear (CLEAR); BILIRUBIN,URINE Negative (NEGATIVE); BLOOD, URINE Negative Ery/uL (NEGATIVE); COLOR,URINE Yellow (YELLOW); KETONES,URINE Negative (NEGATIVE); LEUKOCYTE ESTERASE ,URINE Negative (NEGATIVE); NITRITE, URINE Negative (NEGATIVE); PROTEIN,URINE Negative (NEGATIVE); UGLUCOSE Negative (NEGATIVE); UROBILINOGEN,URINE 0.2 EU/dL (0.2)
[2019-11-08] MEDS ORDERED: PIPERACILLIN /TAZOBACTAM 3.375 G in IV D5W 50 ML IV ONE (12:30)
[2019-11-08] MEDS ORDERED: VANCOMYCIN 1 GM in IV D5W 250 ML IV ONE (12:30)
--- NOTE | 2019-11-08 12:49 | NUR ---
GOT BED 118-2
[2019-11-08] MEDS ORDERED: PIPERACILLIN /TAZOBACTAM 3.375 G VIAL IV ONE (13:21)
[2019-11-08] MEDS ORDERED: VANCOMYCIN 1 GM VIAL ONE (13:21)
--- NOTE | 2019-11-08 13:22 | NUR ---
BED ASSIGNED:118-2
--- NOTE | 2019-11-08 14:32 | NUR ---
REPORT GIVEN TO MIGUEL A OF TELE UNIT
--- NOTE | 2019-11-08 14:45 | NUR ---
PT BROUGHT ONTO UNIT ON GURNEY. PT SHOWS NO SIGNS OF SOB OR PAIN AT PRESENT MOMENT. PT TRANSFERRED TO BED WITHOUT INCIDENT. TELE MONITOR SHOWS PT IS SR 68 ON MONITOR. PT HAS A TRACH SET TO COOL AEROSOL ON 5 L O2 VIA VENTURI MASK. PT IS INCONTINENT DIAPER CHANGED. SUCTION EQUIPMENT AT BEDSIDE. PT IS PUT IN HIGH ADAM POSITION FOR OPTIMAL LUNG EXPANSION. BED IS LOCKED AND IN LOWEST POSITION WITH SPECIAL WARFARE OPERATOR AT BEDSIDE. WILL CONTINUE TO MONITOR.
[2019-11-08] MEDS ORDERED: HYDROCODONE/APAP 5/325MG 1 EACH TABLET PO PRN (15:00)
[2019-11-08] MEDS ORDERED: ACETAMINOPHEN 325 MG TABLET PO PRN (15:00)
[2019-11-08] MEDS ORDERED: Z GUARD REMEDY 2 OZ OINT TP PRN (15:00)
[2019-11-08] MEDS ORDERED: ONDANSETRON HCL/PF 4 MG/2 ML VIAL IVP PRN (15:00)
[2019-11-08] MEDS ORDERED: MAG HYDROX/AL HYDROX/SIMETH 30 ML UDC PO PRN (15:00)
[2019-11-08] MEDS ORDERED: MAGNESIUM HYDROXIDE 30 ML UDC PO PRN (15:00)
[2019-11-08] MEDS ORDERED: FEE PK DOSING 1 MIN EA MC ONE (15:07)
[2019-11-08 16:00] VITALS: BP 99/65
[2019-11-08] MEDS: IV NS 0.9% 1,000 ML IV PRN (17:41)
[2019-11-08] MEDS: PIPERACILLIN /TAZOBACTAM 3.375 G in IV D5W 50 ML IV SCH ×2 (17:41→23:43)
--- NOTE | 2019-11-08 18:54 | NUR ---
SPOKE WITH DILLON SALTER PHOTOENGRAVING PROOFER FROM [facility] [facility] [employer] WHERE PT RESIDES. SHE INFORMED PT IS ON 2 STEW HN FEEDING 50 CC/HR X 20 HRS. 1,000 CC DAILY.
--- NOTE | 2019-11-08 19:32 | NUR ---
RN CLOSING NOTES PT IS ASLEEP IN HIGH ADAM POSITION. PT HAS EQUAL CHEST RISE AND FALL BILATERALLY. ALL NEEDS MET AND MAINLINED WITH SAFETY PRECAUTIONS IN PLACE. REPORT GIVEN TO ZIGZAG TOPSTITCHER RN FOR BANDAR.
[2019-11-08 20:00] VITALS: BP 104/69
[2019-11-09] VITALS: BP 101/66
[2019-11-09] MEDS: VANCOMYCIN 1 GM in IV D5W 250 ML IV SCH ×2 (01:08→14:02)
[2019-11-09 04:00] VITALS: BP 105/68
[2019-11-09] MEDS ORDERED: IPRATROPIUM NEB FS 0.5 MG/2.5 ML AMPUL.NEB NEB PRN (05:00)
[2019-11-09] MEDS ORDERED: ALBUTEROL FS 2.5 MG/0.5 ML VIAL.NEB NEB PRN (05:00)
[2019-11-09] MEDS: PIPERACILLIN /TAZOBACTAM 3.375 G in IV D5W 50 ML IV SCH ×3 (06:27→18:40)
[2019-11-09] MEDS: IV NS 0.9% 1,000 ML IV PRN (06:59)
--- NOTE | 2019-11-09 07:15 | NUR ---
RN INITIAL NOTE PATIENT IN BED, AWAKE OPENS EYES. ON TPIECE COOL AEROSOL, NO SOB NOTED. NO SIGNS OF ANY DISTRESS. ON TELE MONITOR, SR. HAS A RIGHT HAND #18 WITH NS AT 75 ML/HR. HAS GT SITE, NO FEEDING AT THIS TIME. DIRECTOR EXECUTIVE COMMUNICATIONS CONSULT HAS BEEN ORDERED YESTERDAY. BED LOCKED AND IN LOWEST POSITION. WILL CONTINUE TO MONITOR
[2019-11-09] MEDS: ALBUTEROL FS 2.5 MG/0.5 ML VIAL.NEB NEB SCH ×5 (07:38→23:25)
[2019-11-09] MEDS: IPRATROPIUM NEB FS 0.5 MG/2.5 ML AMPUL.NEB NEB SCH ×5 (07:38→23:25)
[2019-11-09 08:00] VITALS: BP 112/62
[2019-11-09] MEDS: PANTOPRAZOLE 40 MG VIAL IV SCH (08:54)
[2019-11-09 09:24] LABS: BASOPHILS % (AUTO) 0.5 % (0.0-2.0); EOSINOPHILS % (AUTO) 1.8 % (0.0-6.0); HEMATOCRIT 37 % (39-51); HEMOGLOBIN 12.9 g/dL (13.5-17.5); LYMPHOCYTES # (AUTO) 1.3 /CMM (0.8-4.8); LYMPHOCYTES % (AUTO) 17.1 % (20.0-44.0); MEAN CORPUSCULAR HGB CONC 35 g/dl (31.0-36.0); MEAN CORPUSCULAR VOLUME 97 fL (80-96); MONOCYTES % (AUTO) 12.7 % (2.0-12.0); NEUTROPHILS # (AUTO) 5.2 /CMM (1.8-8.9); NEUTROPHILS % (AUTO) 67.9 % (43.0-81.0); PLATELET COUNT (AUTO) 212 /CMM (150-450); RED BLOOD CELL COUNT(AUTO) 3.84 MIL/uL (4.5-6.0); WHITE BLOOD COUNT (AUTO) 7.7 K/uL (4.3-11.0)
[2019-11-09 09:33] LABS: MAGNESIUM 2.1 mg/dL (1.8-2.4); PHOSPHORUS 1.7 mg/dL (2.5-4.9); POTASSIUM 3.7 mmol/L (3.5-5.1)
--- NOTE | 2019-11-09 10:46 | NUR ---
RN NOTE TALKED TO TEMPORARY RECEPTIONIST AT BEDSIDE, HELPED ME ORDER TWO STEW HN FEEDING FOR THE PATIENT. AND SUGGESTED TO START BY 40 ML/HR X24HRS. AND TO HAVE A GOAL OF 50 ML/HR X24H. CLARIFIED WITH DR SNOW, PER MD DOHERTY TO CONTINUE GTF
[2019-11-09] MEDS ORDERED: K PHOS NEUTRAL 250 MG TABLET GT ONE (11:30)
[2019-11-09 12:00] VITALS: BP 95/60
[2019-11-09] MEDS: TWOCAL HN 1,000 ML LIQUID GT PRN (12:46)
--- NOTE | 2019-11-09 14:03 | NUR ---
RN NOTE PAGED DR SNOW REGARDING PATIENT'S MED RECONCILIATION
--- NOTE | 2019-11-09 14:14 | NUR ---
RN NOTE CALLED RT, PATIENT HAS REALLY THICK SECRETIONS. SUCTIONED THE PATIENT BUT STILL HAS SECRETIONS
--- NOTE | 2019-11-09 14:41 | NUR ---
RN NOTE TOBACCO GROWER CALLED, PATIENT'S NEW GTF GOAL WILL BE 40. PATIENT IS CURRENTLY ON 40 ML/HR TOLERATING WELL. NO RESIDUAL NOTED
[2019-11-09 16:00] VITALS: BP 111/60
--- NOTE | 2019-11-09 16:27 | NUR ---
RN NOTE LAB CALLED, PATIENT'S BLOOD CX IS RESULTED. PATIENT HAS GRAM POSITIVE COCCI CLUSTERS. MD MADE AWARE
--- NOTE | 2019-11-09 19:08 | NUR ---
RN CLOSING NOTE PATIENT IN BED, OBTUNED. ON TPIECE 5L. NO SIGNS OF ANY DISTRESS. ON GTF TWOCAL AT 40 ML/HR. GOAL IS NOW 40 ML/HR PER RD. HAS A RIGTH HAND #18 WITH NS AT 75 ML/HR. PHOS REPLACED. ALL MEDS GIVEN. ALL NEEDS MET. WILL ENDORSE TO NOC SHIFT FOR BANDAR
[2019-11-09 20:00] VITALS: BP 139/77
[2019-11-10] VITALS: BP 127/73
[2019-11-10] MEDS: PIPERACILLIN /TAZOBACTAM 3.375 G in IV D5W 50 ML IV SCH ×4 (00:59→18:30)
[2019-11-10] MEDS: VANCOMYCIN 1 GM in IV D5W 250 ML IV SCH (01:53)
[2019-11-10] MEDS: IV NS 0.9% 1,000 ML IV PRN (01:55)
[2019-11-10 04:00] VITALS: BP 138/72
[2019-11-10] MEDS: ALBUTEROL FS 2.5 MG/0.5 ML VIAL.NEB NEB SCH ×5 (04:09→19:30)
[2019-11-10] MEDS: IPRATROPIUM NEB FS 0.5 MG/2.5 ML AMPUL.NEB NEB SCH ×5 (04:09→19:30)
[2019-11-10 06:45] LABS: BASOPHILS % (AUTO) 0.4 % (0.0-2.0); EOSINOPHILS % (AUTO) 2.1 % (0.0-6.0); HEMATOCRIT 37 % (39-51); HEMOGLOBIN 12.6 g/dL (13.5-17.5); LYMPHOCYTES # (AUTO) 1.5 /CMM (0.8-4.8); MEAN CORPUSCULAR HGB CONC 34 g/dl (31.0-36.0); MEAN CORPUSCULAR VOLUME 98 fL (80-96); MONOCYTES # (AUTO) 1.1 /CMM (0.1-1.30); MONOCYTES % (AUTO) 15.5 % (2.0-12.0); NEUTROPHILS # (AUTO) 4.5 /CMM (1.8-8.9); PLATELET COUNT (AUTO) 226 /CMM (150-450); RED BLOOD CELL COUNT(AUTO) 3.75 MIL/uL (4.5-6.0); WHITE BLOOD COUNT (AUTO) 7.3 K/uL (4.3-11.0)
[2019-11-10 06:48] LABS: CALCIUM, SERUM 8.3 mg/dL (8.5-10.1); CREATININE 1.1 mg/dL (0.6-1.3); MAGNESIUM 1.9 mg/dL (1.8-2.4); PHOSPHORUS 1.9 mg/dL (2.5-4.9); POTASSIUM 3.3 mmol/L (3.5-5.1)
--- NOTE | 2019-11-10 07:10 | NUR ---
RN INITIAL NOTE PATIENT IN BED, AWAKE OPENS EYES. ON TPIECE 5L COOL AEROSOL, NO SOB NOTED. NO SIGNS OF ANY DISTRESS. ON TELE MONITOR, SR. HAS A RIGHT HAND #18 WITH NS AT 75 ML/HR. HAS GT SITE, WITH TWOCAL HN AT 40 ML/HR. BED LOCKED AND IN LOWEST POSITION. WILL CONTINUE TO MONITOR
[2019-11-10 08:00] VITALS: BP 110/59
[2019-11-10] MEDS: PANTOPRAZOLE 40 MG VIAL IV SCH (08:33)
[2019-11-10] MEDS ORDERED: PIPE3.379 IV (09:30)
[2019-11-10] MEDS: Potassium Phosphate meq 11 MEQ in IV D5W 100 ML IV SCH ×2 (10:49→15:41)
[2019-11-10 12:00] VITALS: BP 110/67
--- NOTE | 2019-11-10 12:01 | NUR ---
RN NOTE DR SNOW AT BEDSIDE, OK TO DC PATIENT TODAY AFTER ALL IV REPLACEMENTS. SALES AND DISTRIBUTION CLERK AWARE, PAT[facility] IS [facility]
--- NOTE | 2019-11-10 14:34 | NUR ---
RN NOTE REPORT GIVEN TO GAETANO WINN AT [facility]. AMBULANCE TIMBER BUCKER TIME AT 1700
[2019-11-10 16:00] VITALS: BP 121/66
--- NOTE | 2019-11-10 16:10 | NUR ---
RN NOTE TRIED CALLING FAMILY, PHONE NUMBER ON FILE INCORRECT ORIANA MARQUES -
[2019-11-10] MEDS: TWOCAL HN 1,000 ML LIQUID GT PRN (18:45)
--- NOTE | 2019-11-10 19:47 | NUR ---
MS-1/ABY PT OFF THE FLOOR WITH AMBULANCE TRANSPORTATION TO [facility]. REPORT TO MILO SALTER AT [facility] ON [address].
== END 2019-11-10 19:47 | DRG 720 ==
LOC: ER 11:00 → TELE-TD 13:31 → MEDSG1 11-10 11:47
PROVIDERS: ADMIT Internal Medicine; ATTEND Internal Medicine
DX: A41.9 Sepsis, unspecified organism (principal); J96.21 Acute and chronic respiratory failure with hypoxia; N17.0 Acute kidney failure with tubular necrosis; J69.0 Pneumonitis due to inhalation of food and vomit; G93.1 Anoxic brain damage, not elsewhere classified; E43 Unspecified severe protein-calorie malnutrition; E87.2 Acidosis; Z93.0 Tracheostomy status; R13.10 Dysphagia, unspecified; E86.1 Hypovolemia; E87.1 Hypo-osmolality and hyponatremia; Z93.1 Gastrostomy status; Z68.24 Body mass index [BMI] 24.0-24.9, adult; I10 Essential (primary) hypertension; G40.909 Epilepsy, unspecified, not intractable, without status epilepticus; Z87.820 Personal history of traumatic brain injury; I25.10 Atherosclerotic heart disease of native coronary artery without angina pectoris
CPT/HCPCS: 31720; 36415; 71045-TC; 80048-TC; 80076-TC; 80202-TC; 81000-TC; 82962-TC; 83605-TC; 83735-TC; 84100-TC; 84484-TC; 85025-TC; 85730-TC; 86850-TC; 87040-TC; 87081-TC; 87086-TC; 87186-TC; 94640-TC; A6253; A6403; C9113; G0378; J2543; J3370; J3490; J7030; J7040; J7060

== ENCOUNTER 2019-11-24 01:52 | Inpatient (IN) | payer MEDICAID ==
[~2019-11-24] VITALS: Ht 165.1 cm; Wt 78.0 kg
[~2019-11-24 01:52] MED LIST changes: -ACET160S GT; -AMLO10TA7 GT; +BUDE0.5A4 IH; -DEXT1DRO3 OP; -HYDR-4076 GT; +NUT.237L25 GT; +OMEP20CA15 PO; +ONDA4TAB5 GT; +PIPE3.379 IV; +SIME80TA15 GT; -TOBR40VI2 INH
[2019-11-24] MEDS ORDERED: PIPERACILLIN /TAZOBACTAM 3.375 G in IV D5W 50 ML IV ONE (02:00)
[2019-11-24] MEDS ORDERED: VANCOMYCIN 1 GM in IV D5W 250 ML IV ONE (02:00)
[2019-11-24] MEDS ORDERED: PIPERACILLIN /TAZOBACTAM 3.375 G VIAL IV ONE (02:05)
[2019-11-24 02:22] LABS: CARBON DIOXIDE 23 mmol/L (21-32); CHLORIDE 101 mmol/L (98-107); CREATININE 1.4 mg/dL (0.6-1.3); GLUCOSE 169 mg/dL (74-106); POTASSIUM 3.8 mmol/L (3.5-5.1); SODIUM SERUM 136 mmol/L (136-145); UREA NITROGEN, BLOOD 24 mg/dL (7-18)
[2019-11-24] MEDS ORDERED: ALBUTEROL FS 2.5 MG/3 ML VIAL.NEB ONE (02:27)
[2019-11-24] MEDS ORDERED: IV NS 0.9% 1,000 ML BAG IV ONE ×2 (02:30→03:00)
[2019-11-24] MEDS ORDERED: ALBUTEROL FS 2.5 MG/3 ML VIAL.NEB CONTNEB ONE (02:30)
[2019-11-24 02:33] LABS: BASOPHILS % (AUTO) 0.3 % (0.0-2.0); EOSINOPHILS % (AUTO) 0.3 % (0.0-6.0); HEMATOCRIT 43 % (39-51); HEMOGLOBIN 14.6 g/dL (13.5-17.5); LYMPHOCYTES # (AUTO) 1.2 /CMM (0.8-4.8); LYMPHOCYTES % (AUTO) 7.4 % (20.0-44.0); MEAN CORPUSCULAR HGB CONC 34 g/dl (31.0-36.0); MEAN CORPUSCULAR VOLUME 97 fL (80-96); MONOCYTES % (AUTO) 12.6 % (2.0-12.0); NEUTROPHILS # (AUTO) 12.7 /CMM (1.8-8.9); NEUTROPHILS % (AUTO) 79.4 % (43.0-81.0); PLATELET COUNT (AUTO) 301 /CMM (150-450); RED BLOOD CELL COUNT(AUTO) 4.42 MIL/uL (4.5-6.0)
[2019-11-24 02:36] LABS: ALANINE AMINOTRANSFERASE 50 U/L (12-78); ALBUMIN 3.6 g/dL (3.4-5.0); ALKALINE PHOSPHATASE 157 U/L (46-116); ASPARTATE AMINOTRANSFERASE 26 U/L (15-37); B-TYPE NATRIURETIC PEPTIDE 258 PG/ML (0-125); BILIRUBIN,DIRECT 0.1 mg/dL (0.0-0.2); BILIRUBIN,TOTAL 0.3 mg/dL (0.2-1.0); TOTAL PROTEIN, SERUM 8.4 g/dL (6.4-8.2)
[2019-11-24] MEDS ORDERED: ACETAMINOPHEN 650 MG/SUPP.RECT RC ONE ×2 (02:39→03:00)
[2019-11-24 03:01] LABS: APPEARANCE,URINE Clear (CLEAR); BILIRUBIN,URINE Negative (NEGATIVE); BLOOD, URINE Negative Ery/uL (NEGATIVE); COLOR,URINE Yellow (YELLOW); KETONES,URINE Negative (NEGATIVE); LEUKOCYTE ESTERASE ,URINE Negative (NEGATIVE); NITRITE, URINE Negative (NEGATIVE); PH,URINE 8.5 (5.0-8.0); PROTEIN,URINE Negative (NEGATIVE); UGLUCOSE Negative (NEGATIVE)
[2019-11-24] MEDS ORDERED: VANCOMYCIN 1 GM VIAL ONE (03:02)
[2019-11-24] MEDS ORDERED: methylPREDNISolone SOD SUCC 125 MG/2ML VIAL ONE (03:24)
[2019-11-24 03:27] LABS: ABG BASE EXCESS -4.1 mmol/L; ABG OXYGEN SATURATION 99.2 % (92.0-98.5); ABG PCO2 33.1 mmHg (35.0-45.0); ABG PH 7.395 (7.350-7.450); ABG PO2 259.2 mmHg (75.0-100.0); AaDO2 420.7 mmHg; COHb 0.2 % (0.5-1.5); MetHb 0.3 % (0.0-1.5); O2Hb 98.7 % (94.0-97.0); SITE, ABG Right Radial
[2019-11-24] MEDS ORDERED: methylPREDNISolone SOD SUCC 125 MG/2ML VIAL IV ONE (03:30)
[2019-11-24 03:31] LABS: RBC,URINE 0-2 /HPF (0-2); WBC,URINE 0-2 /HPF (0-3)
[2019-11-24 03:32] LABS: BACTERIA,URINE None seen /HPF (None Seen); SQUAMOUS EPITHELIAL CELL,UR Few /HPF (None Seen)
[2019-11-24] MEDS ORDERED: ALBUTEROL FS 2.5 MG/3 ML VIAL.NEB NEB PRN (04:00)
[2019-11-24] MEDS ORDERED: MORPHINE SULFATE INJ 2 MG/ML DISP.SYRIN IV PRN (04:00)
[2019-11-24] MEDS ORDERED: ACETAMINOPHEN 325 MG TABLET PO PRN (04:00)
[2019-11-24] MEDS ORDERED: MAG HYDROX/AL HYDROX/SIMETH 30 ML UDC PO PRN (04:00)
[2019-11-24] MEDS ORDERED: ONDANSETRON HCL/PF 4 MG/2 ML VIAL IVP PRN (04:00)
[2019-11-24] MEDS ORDERED: MAGNESIUM HYDROXIDE 30 ML UDC PO PRN (04:00)
[2019-11-24] MEDS ORDERED: Z GUARD REMEDY 2 OZ OINT TP PRN (04:00)
[2019-11-24] MEDS ORDERED: ACETAMINOPHEN 325 MG TABLET MC PRN (04:00)
[2019-11-24] MEDS ORDERED: HYDROCODONE/APAP 5/325MG 1 EACH TABLET GT PRN (04:00)
[2019-11-24] MEDS ORDERED: IPRATROPIUM NEB FS 0.5 MG/2.5 ML AMPUL.NEB NEB PRN (04:00)
[2019-11-24 06:04] VITALS: BP 112/87
[2019-11-24] MEDS: IV NS 0.9% 1,000 ML IV PRN (06:43)
[2019-11-24] MEDS: methylPREDNISolone SOD SUCC 40 MG/ML VIAL IV SCH ×3 (06:44→21:19)
[2019-11-24] MEDS ORDERED: FEE PK DOSING 1 MIN EA MC ONE (07:09)
[2019-11-24 08:00] VITALS: BP 109/68
[2019-11-24] MEDS: PIPERACILLIN /TAZOBACTAM 3.375 G in IV D5W 50 ML IV SCH ×3 (08:15→20:43)
[2019-11-24 12:00] VITALS: BP 117/57
[2019-11-24] MEDS ORDERED: TRAMADOL HCL 50 MG TABLET GT PRN (12:30)
[2019-11-24] MEDS: SIMETHICONE 80 MG TAB.CHEW GT SCH ×2 (12:53→21:19)
[2019-11-24] MEDS ORDERED: MAGNESIUM HYDROXIDE 30 ML UDC GT PRN (13:00)
[2019-11-24] MEDS ORDERED: MAG HYDROX/AL HYDROX/SIMETH 30 ML UDC GT PRN (13:00)
[2019-11-24] MEDS ORDERED: ACET160S GT (13:05)
[2019-11-24] MEDS ORDERED: CRAN3875 GT (13:05)
[2019-11-24] MEDS: TWOCAL HN 1,000 ML LIQUID GT PRN (15:10)
[2019-11-24 16:00] VITALS: BP 118/62
[2019-11-24] MEDS: BUDESONIDE RESPULE INH 0.5 MG/2 ML AMPUL.NEB IH SCH (19:39)
[2019-11-24 20:00] VITALS: BP 120/60
[2019-11-24] MEDS: VANCOMYCIN 1 GM in IV D5W 250ml IV SCH (20:43)
[2019-11-24] MEDS: AMANTADINE SUSP 50 MG/5 ML UDC GT SCH (21:00)
[2019-11-24] MEDS: CHLORHEXIDINE GLUCONATE 15 ML UDC MM SCH (21:19)
[2019-11-24] MEDS: LEVETIRACETAM SOL (5 ML) 100 MG/ML UDC GT SCH (21:19)
[2019-11-24] MEDS: HEPARIN SODIUM, PORCINE 5000 UNITS/1 ML VIAL SQ SCH (21:21)
[2019-11-25] VITALS: BP 117/59
[2019-11-25] MEDS: IV NS 0.9% 1,000 ML IV PRN ×2 (01:03→14:35)
[2019-11-25] MEDS: PIPERACILLIN /TAZOBACTAM 3.375 G in IV D5W 50 ML IV SCH ×4 (01:48→20:57)
[2019-11-25 04:00] VITALS: BP 113/58
[2019-11-25] MEDS: SIMETHICONE 80 MG TAB.CHEW GT SCH ×3 (04:12→20:58)
[2019-11-25] MEDS: methylPREDNISolone SOD SUCC 40 MG/ML VIAL IV SCH ×3 (04:12→20:58)
[2019-11-25 06:23] LABS: BASOPHILS % (AUTO) 0.1 % (0.0-2.0); HEMATOCRIT 35 % (39-51); HEMOGLOBIN 11.8 g/dL (13.5-17.5); LYMPHOCYTES # (AUTO) 0.8 /CMM (0.8-4.8); LYMPHOCYTES % (AUTO) 7.8 % (20.0-44.0); MEAN CORPUSCULAR HGB CONC 34 g/dl (31.0-36.0); MEAN CORPUSCULAR VOLUME 98 fL (80-96); MONOCYTES # (AUTO) 0.7 /CMM (0.1-1.30); MONOCYTES % (AUTO) 7.1 % (2.0-12.0); NEUTROPHILS # (AUTO) 8.3 /CMM (1.8-8.9); PLATELET COUNT (AUTO) 216 /CMM (150-450); RED BLOOD CELL COUNT(AUTO) 3.55 MIL/uL (4.5-6.0); WHITE BLOOD COUNT (AUTO) 9.8 K/uL (4.3-11.0)
[2019-11-25 06:42] LABS: CALCIUM, SERUM 7.8 mg/dL (8.5-10.1); CREATININE 0.8 mg/dL (0.6-1.3); MAGNESIUM 2.1 mg/dL (1.8-2.4); PHOSPHORUS 2.5 mg/dL (2.5-4.9); POTASSIUM 3.8 mmol/L (3.5-5.1)
[2019-11-25] MEDS: BUDESONIDE RESPULE INH 0.5 MG/2 ML AMPUL.NEB IH SCH ×2 (07:41→19:17)
[2019-11-25 08:00] VITALS: BP 95/53
[2019-11-25] MEDS: CHLORHEXIDINE GLUCONATE 15 ML UDC MM SCH ×2 (08:15→20:57)
[2019-11-25] MEDS: LEVETIRACETAM SOL (5 ML) 100 MG/ML UDC GT SCH ×2 (08:15→20:58)
[2019-11-25] MEDS: HEPARIN SODIUM, PORCINE 5000 UNITS/1 ML VIAL SQ SCH ×2 (08:17→20:58)
[2019-11-25 12:00] VITALS: BP_SYST 92; BP_DIAS 47; BP_DIAS 74
[2019-11-25] MEDS: AMANTADINE SUSP 50 MG/5 ML UDC GT SCH ×2 (12:22→21:00)
[2019-11-25] MEDS: PANTOPRAZOLE 40 MG/PACK PACK GT SCH (12:23)
[2019-11-25 16:00] VITALS: BP 110/50
[2019-11-25] MEDS: VANCOMYCIN 1 GM in IV D5W 250ml IV SCH (16:16)
[2019-11-25 20:00] VITALS: BP 121/55
[2019-11-26] VITALS: BP 120/64
[2019-11-26] MEDS: PIPERACILLIN /TAZOBACTAM 3.375 G in IV D5W 50 ML IV SCH ×4 (01:16→20:15)
[2019-11-26 04:00] VITALS: BP 132/72
[2019-11-26] MEDS: TWOCAL HN 1,000 ML LIQUID GT PRN (04:29)
[2019-11-26] MEDS: SIMETHICONE 80 MG TAB.CHEW GT SCH ×3 (04:42→20:15)
[2019-11-26] MEDS: methylPREDNISolone SOD SUCC 40 MG/ML VIAL IV SCH ×3 (04:42→20:15)
[2019-11-26 06:36] LABS: CREATININE 0.8 mg/dL (0.6-1.3); POTASSIUM 3.6 mmol/L (3.5-5.1)
[2019-11-26 08:00] VITALS: BP 98/52
[2019-11-26] MEDS: BUDESONIDE RESPULE INH 0.5 MG/2 ML AMPUL.NEB IH SCH ×2 (08:13→19:52)
[2019-11-26] MEDS: HEPARIN SODIUM, PORCINE 5000 UNITS/1 ML VIAL SQ SCH ×2 (08:23→20:17)
[2019-11-26] MEDS: LEVETIRACETAM SOL (5 ML) 100 MG/ML UDC GT SCH ×2 (08:23→20:15)
[2019-11-26] MEDS: CHLORHEXIDINE GLUCONATE 15 ML UDC MM SCH ×2 (08:23→20:15)
[2019-11-26] MEDS: IV NS 0.9% 1,000 ML IV PRN (08:27)
[2019-11-26] MEDS: VANCOMYCIN 1 GM in IV D5W 250ml IV SCH (08:55)
[2019-11-26] MEDS: PANTOPRAZOLE 40 MG/PACK PACK GT SCH (11:36)
[2019-11-26 12:00] VITALS: BP 109/65
[2019-11-26] MEDS: CLOTRIMAZOLE 1% 15 GM TUBE TP SCH ×2 (12:34→12:46)
[2019-11-26] MEDS: AMANTADINE SUSP 50 MG/5 ML UDC GT SCH ×2 (14:46→20:19)
[2019-11-26 16:00] VITALS: BP 118/69
[2019-11-26 20:00] VITALS: BP 146/68
[2019-11-27] VITALS: BP 123/68
[2019-11-27] MEDS: IV NS 0.9% 1,000 ML IV PRN (00:44)
[2019-11-27] MEDS: TWOCAL HN 1,000 ML LIQUID GT PRN (00:44)
[2019-11-27] MEDS: PIPERACILLIN /TAZOBACTAM 3.375 G in IV D5W 50 ML IV SCH ×3 (01:03→13:41)
[2019-11-27] MEDS: VANCOMYCIN 1 GM in IV D5W 250ml IV SCH (01:42)
[2019-11-27 04:50] VITALS: BP 100/56
[2019-11-27] MEDS: methylPREDNISolone SOD SUCC 40 MG/ML VIAL IV SCH ×2 (06:27→13:39)
[2019-11-27] MEDS: SIMETHICONE 80 MG TAB.CHEW GT SCH ×2 (06:27→13:40)
[2019-11-27] MEDS ORDERED: PIPE3.379 IV (06:34)
[2019-11-27 06:57] LABS: BASOPHILS % (AUTO) 0.3 % (0.0-2.0); HEMATOCRIT 37 % (39-51); HEMOGLOBIN 12.4 g/dL (13.5-17.5); LYMPHOCYTES # (AUTO) 0.9 /CMM (0.8-4.8); LYMPHOCYTES % (AUTO) 11.5 % (20.0-44.0); MEAN CORPUSCULAR HGB CONC 34 g/dl (31.0-36.0); MEAN CORPUSCULAR VOLUME 99 fL (80-96); MONOCYTES # (AUTO) 0.7 /CMM (0.1-1.30); MONOCYTES % (AUTO) 8.6 % (2.0-12.0); NEUTROPHILS # (AUTO) 6.2 /CMM (1.8-8.9); NEUTROPHILS % (AUTO) 79.6 % (43.0-81.0); PLATELET COUNT (AUTO) 239 /CMM (150-450); RED BLOOD CELL COUNT(AUTO) 3.73 MIL/uL (4.5-6.0); WHITE BLOOD COUNT (AUTO) 7.7 K/uL (4.3-11.0)
[2019-11-27] MEDS: BUDESONIDE RESPULE INH 0.5 MG/2 ML AMPUL.NEB IH SCH (07:43)
[2019-11-27 08:00] VITALS: BP 113/67
[2019-11-27 08:12] LABS: CALCIUM, SERUM 8.1 mg/dL (8.5-10.1); CREATININE 0.9 mg/dL (0.6-1.3); MAGNESIUM 2.3 mg/dL (1.8-2.4); PHOSPHORUS 1.9 mg/dL (2.5-4.9); POTASSIUM 3.4 mmol/L (3.5-5.1)
[2019-11-27] MEDS: LEVETIRACETAM SOL (5 ML) 100 MG/ML UDC GT SCH (08:55)
[2019-11-27] MEDS: AMANTADINE SUSP 50 MG/5 ML UDC GT SCH (08:55)
[2019-11-27] MEDS: CHLORHEXIDINE GLUCONATE 15 ML UDC MM SCH (08:55)
[2019-11-27] MEDS: HEPARIN SODIUM, PORCINE 5000 UNITS/1 ML VIAL SQ SCH (08:57)
[2019-11-27] MEDS: CLOTRIMAZOLE 1% 15 GM TUBE TP SCH ×2 (08:58→17:03)
[2019-11-27] MEDS ORDERED: POTASSIUM CHLORIDE 20 MEQ POWDER PACKET NG SCH (09:30)
[2019-11-27] MEDS ORDERED: NEUTRA PHOS 1 POWD.PACKET NG ONE (10:00)
[2019-11-27] MEDS: PANTOPRAZOLE 40 MG/PACK PACK GT SCH (10:15)
[2019-11-27 12:00] VITALS: BP 124/72
[2019-11-27 16:00] VITALS: BP 121/76
== END 2019-11-27 17:40 | DRG 720 ==
LOC: ER 01:53 → TELE-TD 04:35 → TELE1 09:15
PROVIDERS: ADMIT Nurse Practitioner Acute Care; ATTEND Internal Medicine
PROC: 5A1945Z Respiratory Ventilation, 24-96 Consecutive Hours (ICD-10-PCS; principal; 2019-11-24)
DX: A41.9 Sepsis, unspecified organism (principal); J96.21 Acute and chronic respiratory failure with hypoxia; N17.0 Acute kidney failure with tubular necrosis; Z99.11 Dependence on respirator [ventilator] status; Z93.0 Tracheostomy status; R53.2 Functional quadriplegia; R65.21 Severe sepsis with septic shock; D72.829 Elevated white blood cell count, unspecified; D63.8 Anemia in other chronic diseases classified elsewhere; E87.0 Hyperosmolality and hypernatremia; E86.0 Dehydration; E87.2 Acidosis; G40.909 Epilepsy, unspecified, not intractable, without status epilepticus; I10 Essential (primary) hypertension; I70.0 Atherosclerosis of aorta; R13.10 Dysphagia, unspecified; Z93.1 Gastrostomy status; Z87.820 Personal history of traumatic brain injury; G20 Parkinson's disease; J20.9 Acute bronchitis, unspecified; Z74.01 Bed confinement status; J45.909 Unspecified asthma, uncomplicated; I25.2 Old myocardial infarction
CPT/HCPCS: 31720; 36415; 36600; 71045-TC; 80048-TC; 80061-TC; 80076-TC; 80202-TC; 81000-TC; 82803-TC; 83605-TC; 83735-TC; 83880; 84100-TC; 84484-TC; 85025-TC; 85730-TC; 87040-TC; 87070-TC; 87081-TC; 87086-TC; 94002-TC; 94003-TC; 94640-TC; 94760-TC; 94762-TC; A4349; A7526; G0378; J1644; J1953; J2543; J2920; J2930; J3370; J7030; J7040; J7060